=== PATIENT | male | born 1950 | race Caucasian/White ===

== ENCOUNTER 2024-08-20 15:19 | Inpatient (IN) | payer MEDICARE ==
[2024-08-20 16:31] LABS: ALT (SGPT) 23 U/L (8-55); AST (SGOT) 32 U/L (5-34); Albumin 3.5 g/dL (3.4-4.8); Alkaline Phosphatase 75 U/L (40-110); Anion Gap 15 mmol/L (10-20); BUN (Urea Nitrogen) 25 mg/dL (8.4-25.7); Calc. Creatinine Clearance 0 mL/min (70-130); Carbon Dioxide 27 mmol/L (23-31); Chloride 108 mmol/L (98-107); Estimated GFR 42; Globulin 2.2 g/dL (2.4-3.5); Glucose 130 mg/dL (83-110); Protein, Total 5.7 g/dL (5.8-8.1); Sodium 146 mmol/L (136-145)
[2024-08-20 16:37] LABS: Troponin I Less than 0.010 ng/mL (< 0.028)
[2024-08-20 17:27] LABS: Hematocrit 34.2 % (42.0-52.0); Hemoglobin 12.1 g/dL (14.0-18.0); Mean Corpuscular HGB CONC 35.4 g/dL (32.0-36.0); Mean Corpuscular Hemoglobin 33.6 pg (27.0-31.0); Mean Platelet Volume 10.7 fL (7.4-10.4); Platelet Count 115 10x3/uL (130-400); RBC Distribution Width 14.3 % (11.5-14.5)
[2024-08-20 17:38] LABS: Anisocytosis SLIGHT = 6-15 cells HPF (0-5); Band 4 % (5-11); Eosinophils 6 % (0-10); Helmet Cells SLIGHT = 2-5 cells HPF (0-1); Lymphocytes 30 % (21-51); Macrocytosis SLIGHT = 6-15 cells HPF (0-5); Metamyelocyte 1 % (0-0); Monocytes 9 % (0-10); Neutrophil 45 % (42-75); Ovalocytes SLIGHT = 2-5 cells HPF (0-1); Platelet Adequacy Comment Platelets Decreased; Polychromasia SLIGHT = 2-3 cells HPF (0-2); Reactive Lymphocytes 4 % (0-10)
[2024-08-20 18:05] LABS: Bacteria/HPF None Seen HPF (None Seen); Bilirubin Negative (Negative); Blood, Urine Negative (Negative); CAUTI Indications for Culture Acute Hematuria; Clarity Clear (Clear); Glucose, Urine (Dipstick) Normal (Negative); Ketone, Urine Trace mg/dL (Negative); Leukocyte Negative Leu/uL (Negative); Nitrite Negative (Negative); Protein, Urine (Dipstick) Negative (Neg-Trace); RBC/HPF 0-3 HPF (0-3); Specific Gravity, Urine 1.011 (1.002-1.036); Squamous Epithelial None Seen HPF (0-3); Urobilinogen Normal mg/dL (Less than 2); WBC/HPF 0-3 HPF (0-3)
[2024-08-20 18:07] LABS: Urine Culture Reflex No No
[2024-08-20] MEDS ORDERED: Acetaminophen 650 MG Suppository PR PRN (18:12)
[2024-08-20] MEDS ORDERED: Ondansetron PF 4 MG/2 ML Vial IVP PRN (18:12)
[2024-08-20] MEDS ORDERED: Ondansetron ODT 4 MG TAB PO PRN (18:12)
[2024-08-20] MEDS: Sodium Chloride 0.9% 1,000 ML IV SCH (21:00)
[2024-08-20] MEDS ORDERED: Milk Of Magnesia 30 ML UDCUP ONE (21:01)
[2024-08-20] MEDS ORDERED: Lidocaine Viscous Sol 2% 15 ml UD Cup ONE (21:02)
[2024-08-20] MEDS ORDERED: Famotidine 20 MG TAB ONE (21:06)
[2024-08-20] MEDS: Famotidine 20 MG TAB PO SCH (21:21)
[2024-08-20] MEDS: Famotidine/PF 20 mg/2ml Vial SLOW IVP SCH (21:21)
[2024-08-20 21:28] VITALS: BMI 24.8
[2024-08-20 21:31] LABS: Lipase 11 U/L (8-78); Magnesium 2.3 mg/dL (1.6-2.6); Phosphorus 4.4 mg/dL (2.3-4.7)
[2024-08-20] MEDS: Lidocaine 2% Viscous Solution 10 ML, Aluminum & Magnesium Hydroxide 30 ML SSW SCH (21:41)
[2024-08-21 03:48] LABS: Bacteria/HPF None Seen HPF (None Seen); Bilirubin Negative (Negative); Blood, Urine 3+ (Negative); CAUTI Indications for Culture Dysuria,urgency,freq; Clarity Clear (Clear); Glucose, Urine (Dipstick) Normal (Negative); Ketone, Urine Negative (Negative); Leukocyte Negative Leu/uL (Negative); Nitrite Negative (Negative); Protein, Urine (Dipstick) Negative (Neg-Trace); RBC/HPF Greater than 50 HPF (0-3); Squamous Epithelial None Seen HPF (0-3); Urobilinogen Normal mg/dL (Less than 2); WBC/HPF 0-3 HPF (0-3); pH, Urine 6.5 (5.0-9.0)
[2024-08-21 03:51] LABS: Urine Culture Reflex No No
[2024-08-21 05:07] LABS: Anion Gap 14 mmol/L (10-20); BUN (Urea Nitrogen) 23 mg/dL (8.4-25.7); Calc. Creatinine Clearance 40 mL/min (70-130); Calcium 11.8 mg/dL (7.8-10.44); Carbon Dioxide 21 mmol/L (23-31); Chloride 113 mmol/L (98-107); Estimated GFR 43; Glucose 114 mg/dL (83-110); Potassium 3.7 mmol/L (3.5-5.1); Sodium 144 mmol/L (136-145)
[2024-08-21 05:43] LABS: Burr Cells SLIGHT = 2-5 cells HPF (0-1); Elliptocytes SLIGHT = 2-5 cells HPF (0-1); Eosinophils 7 % (0-10); Lymphocytes 36 % (21-51); Macrocytosis SLIGHT = 6-15 cells HPF (0-5); Metamyelocyte 2 % (0-0); Monocytes 2 % (0-10); Myelocyte 3 % (0-0); Neutrophil 50 % (42-75); Platelet Adequacy Comment Platelets Decreased; Polychromasia SLIGHT = 2-3 cells HPF (0-2)
[2024-08-21 05:52] LABS: Hematocrit 29.4 % (42.0-52.0); Hemoglobin 10.2 g/dL (14.0-18.0); Mean Corpuscular HGB CONC 34.7 g/dL (32.0-36.0); Mean Corpuscular Hemoglobin 34.1 pg (27.0-31.0); Mean Corpuscular Volume 98.3 fL (78.0-98.0); Mean Platelet Volume 10.3 fL (7.4-10.4); Platelet Count 97 10x3/uL (130-400); RBC Distribution Width 14.6 % (11.5-14.5); Red Blood Cell (RBC) Count 2.99 mill/uL (4.70-6.10)
[2024-08-21] MEDS: predniSONE 50 MG TAB PO SCH (22:15)
[2024-08-22] MEDS: Pantoprazole DR 40 MG TAB PO SCH (08:39)
[2024-08-22] MEDS: diphenhydrAMINE 50 MG CAP PO SCH (08:39)
[2024-08-22 10:39] LABS: Hematocrit 34.2 % (42.0-52.0); Hemoglobin 11.8 g/dL (14.0-18.0); Mean Corpuscular HGB CONC 34.5 g/dL (32.0-36.0); Mean Corpuscular Hemoglobin 33.9 pg (27.0-31.0); Mean Corpuscular Volume 98.3 fL (78.0-98.0); Mean Platelet Volume 10.2 fL (7.4-10.4); Platelet Count 96 10x3/uL (130-400); RBC Distribution Width 14.6 % (11.5-14.5); Red Blood Cell (RBC) Count 3.48 mill/uL (4.70-6.10)
[2024-08-22 10:59] LABS: ALT (SGPT) 25 U/L (8-55); AST (SGOT) 39 U/L (5-34); Albumin 3.4 g/dL (3.4-4.8); Alkaline Phosphatase 73 U/L (40-110); Anion Gap 14 mmol/L (10-20); BUN (Urea Nitrogen) 29 mg/dL (8.4-25.7); Bilirubin, Total 0.6 mg/dL (0.2-1.2); Calc. Creatinine Clearance 36 mL/min (70-130); Calcium 11.4 mg/dL (7.8-10.44); Carbon Dioxide 24 mmol/L (23-31); Chloride 110 mmol/L (98-107); Estimated GFR 39; Globulin 2.2 g/dL (2.4-3.5); Glucose 234 mg/dL (83-110); Potassium 4.3 mmol/L (3.5-5.1); Protein, Total 5.6 g/dL (5.8-8.1); Sodium 144 mmol/L (136-145)
[2024-08-22 11:08] LABS: Band 6 % (5-11); Eosinophils 1 % (0-10); Lymphocytes 17 % (21-51); Monocytes 4 % (0-10); Neutrophil 70 % (42-75); Platelet Adequacy Comment Platelets Decreased; RBC Morphology Within Normal Limits; Reactive Lymphocytes 1 % (0-10)
[2024-08-22] MEDS ORDERED: Iopamidol 370 76% 100 ML VIAL ONE (15:38)
[2024-08-22 17:17] LABS: Creatinine, Urine 44.89 mg/dL (63-166)
[2024-08-22 17:18] LABS: Microalbumin Urine 1.3 mg/dL (0.5-50.0)
[2024-08-22] MEDS: Acetylcysteine 10% 100 MG/ML (30 ml) SOLN PO SCH (18:55)
[2024-08-22] MEDS: Sodium Chloride 0.9% 1,000 ML IV SCH (18:59)
[2024-08-23 06:51] LABS: Albumin 2.8 g/dL (3.4-4.8); Anion Gap 11 mmol/L (10-20); BUN (Urea Nitrogen) 40 mg/dL (8.4-25.7); BUN/Creatinine Ratio 24.69; Calc. Creatinine Clearance 41 mL/min (70-130); Calcium 9.6 mg/dL (7.8-10.44); Carbon Dioxide 24 mmol/L (23-31); Chloride 114 mmol/L (98-107); Estimated GFR 44; Glucose 164 mg/dL (83-110); Phosphorus 4.6 mg/dL (2.3-4.7); Potassium 3.7 mmol/L (3.5-5.1); Sodium 145 mmol/L (136-145)
[2024-08-23] MEDS: Acetylcysteine 20% 200 MG/ML 30 ML VIAL PO SCH (09:03)
[2024-08-23] MEDS: Albumin 25% 25 GM (100 mL) BOT IVPB SCH ×2 (09:04→15:54)
[2024-08-23] MEDS: Sodium Chloride 0.9% 1,000 ML IV SCH (13:41)
[2024-08-23 14:25] LABS: Reference Lab Name LABCORP
[2024-08-23 17:37] LABS: % Free PSA 41.3 % (.); Total PSA 0.8 ng/mL (0.0-4.0)
[2024-08-24 04:48] LABS: Anion Gap 9 mmol/L (10-20); BUN (Urea Nitrogen) 31 mg/dL (8.4-25.7); Calc. Creatinine Clearance 47 mL/min (70-130); Carbon Dioxide 24 mmol/L (23-31); Chloride 115 mmol/L (98-107); Estimated GFR 53; Glucose 112 mg/dL (83-110); Potassium 3.3 mmol/L (3.5-5.1); Sodium 145 mmol/L (136-145)
[2024-08-24 08:01] LABS: Albumin 2.8 g/dL (3.4-4.8)
[2024-08-24] MEDS: Potassium Bicarbonate/Cit Ac 20 MEQ TAB PO SCH (10:11)
[2024-08-24] MEDS: Sodium Bicarbonate 75 MEQ in Sodium Chloride 0.45% 1,000 ML IV SCH (10:12)
[2024-08-24] MEDS: Albumin 25% 25 GM (100 mL) BOT IVPB SCH (10:12)
[2024-08-24] MEDS: Senokot S 8.6-50 MG TAB PO PRN (17:07)
[2024-08-25 08:27] LABS: Hematocrit 27.8 % (42.0-52.0); Hemoglobin 9.6 g/dL (14.0-18.0); Mean Corpuscular HGB CONC 34.5 g/dL (32.0-36.0); Mean Corpuscular Hemoglobin 33.7 pg (27.0-31.0); Mean Corpuscular Volume 97.5 fL (78.0-98.0); Mean Platelet Volume 10.2 fL (7.4-10.4); Platelet Count 82 10x3/uL (130-400); RBC Distribution Width 14.7 % (11.5-14.5); Red Blood Cell (RBC) Count 2.85 mill/uL (4.70-6.10)
[2024-08-25 08:54] LABS: Albumin 3.6 g/dL (3.4-4.8); Anion Gap 9 mmol/L (10-20); BUN (Urea Nitrogen) 23 mg/dL (8.4-25.7); BUN/Creatinine Ratio 16.31; Calc. Creatinine Clearance 47 mL/min (70-130); Carbon Dioxide 27 mmol/L (23-31); Chloride 110 mmol/L (98-107); Estimated GFR 52; Glucose 128 mg/dL (83-110); Phosphorus 2.8 mg/dL (2.3-4.7); Potassium 3.6 mmol/L (3.5-5.1); Sodium 142 mmol/L (136-145)
[2024-08-25 09:38] LABS: Band 2 % (5-11); Eosinophils 5 % (0-10); Lymphocytes 44 % (21-51); Monocytes 4 % (0-10); Neutrophil 46 % (42-75); Platelet Adequacy Comment Significant Decrease; RBC Morphology Within Normal Limits
[2024-08-25] MEDS ORDERED: Magnevist 469MG/ML 20 ML VIAL ONE (10:01)
[2024-08-25 14:09] LABS: Iron 90 ug/dL (65-175); Iron Binding Capacity, Total 154 mcg/dL (261-462)
[2024-08-25 17:12] LABS: Albumin, PEP 24hr Ur 27.1 % (NOT ESTAB.); Alpha-1-Globulin, PEP 24h Ur 5.6 % (NOT ESTAB.); Alpha-2-Globulin, PEP 24h Ur 15.9 % (NOT ESTAB.); Beta Globulin, PEP 24h Ur 35.5 % (NOT ESTAB.); Gamma Globulin, PEP 24h Ur 15.9 % (NOT ESTAB.); M-Spike,% PEP 24hr Ur Not Observed % (Not Observed); Protein, PEP 24hr calculated 41 mg/24 hr (30-150); Protein, Urine 4.5 mg/dL (Not Estab.)
[2024-08-25] MEDS: EPOETIN ALFA-EPBX (ESRD) 10,000 UNITS/ML VIAL SC SCH (17:35)
[2024-08-25] MEDS: Acetaminophen 325 MG TAB PO PRN (21:36)
[2024-08-26 09:20] LABS: Albumin 3.6 g/dL (3.4-4.8); Anion Gap 11 mmol/L (10-20); BUN (Urea Nitrogen) 20 mg/dL (8.4-25.7); Calc. Creatinine Clearance 43 mL/min (70-130); Calcium 10.4 mg/dL (7.8-10.44); Carbon Dioxide 26 mmol/L (23-31); Chloride 109 mmol/L (98-107); Estimated GFR 47; Glucose 174 mg/dL (83-110); Phosphorus 3.5 mg/dL (2.3-4.7); Potassium 3.6 mmol/L (3.5-5.1); Sodium 142 mmol/L (136-145)
[2024-08-26 15:27] VITALS: BP 127/59; TEMP 97.3
== END 2024-08-26 17:26 | disposition home or self-care (01) | DRG 641 ==
LOC: ERS 15:19 → ERHOLD 18:09 → 2NO 08-21 17:27 → OBSVTOIN 08-22 09:02
PROVIDERS: ADMIT Internal Medicine; ATTEND Hospitalist
DX: E83.52 Hypercalcemia (principal); D62 Acute posthemorrhagic anemia; N17.9 Acute kidney failure, unspecified; E87.29 Other acidosis; K76.89 Other specified diseases of liver; T50.2X5A Adverse effect of carbonic-anhydrase inhibitors, benzothiadiazides and other diuretics, initial encounter; E86.0 Dehydration; R31.9 Hematuria, unspecified; D69.6 Thrombocytopenia, unspecified; N18.2 Chronic kidney disease, stage 2 (mild); I12.9 Hypertensive chronic kidney disease with stage 1 through stage 4 chronic kidney disease, or unspecified chronic kidney disease; R73.03 Prediabetes; R60.0 Localized edema; R22.1 Localized swelling, mass and lump, neck; R62.7 Adult failure to thrive; Z68.24 Body mass index [BMI] 24.0-24.9, adult; Z91.041 Radiographic dye allergy status; Z86.73 Personal history of transient ischemic attack (TIA), and cerebral infarction without residual deficits; E87.6 Hypokalemia
CPT/HCPCS: 36415; 70490; 70543; 71045; 72193; 74183; 80048; 80053; 80069; 81001; 82040; 82043; 82164; 82306; 82550; 82728; 83540; 83550; 83690; 83735; 83880; 83970; 84100; 84153; 84154; 84156; 84166; 84300; 84443; 84484; 84540; 85025; 86850; 86900; 86901; 93005; 93306; 96360; G0378; J0132; J7030; J7512; J7608; P9047; Q5105; Q9967

== ENCOUNTER 2024-08-31 19:33 | Inpatient (IN) | payer MEDICARE ==
[~2024-08-31 19:33] MED LIST: Iopamidol 370 76% 100 ML VIAL ONE
[2024-08-31 21:24] LABS: Acetaminophen Less than 10 mcg/mL (Less than 10); Alcohol Less than 10.0 mg/dL (Less than 10); CK (CPK) 14 U/L (30-200); Lipase 11 U/L (8-78); Salicylate Less than 8.0 mg/dL (Less than 8.0)
[2024-08-31 21:26] LABS: Hematocrit 29.4 % (42.0-52.0); Hemoglobin 9.9 g/dL (14.0-18.0); Mean Corpuscular HGB CONC 33.7 g/dL (32.0-36.0); Mean Corpuscular Hemoglobin 33.6 pg (27.0-31.0); Mean Corpuscular Volume 99.7 fL (78.0-98.0); Mean Platelet Volume 9.7 fL (7.4-10.4); Platelet Count 114 10x3/uL (130-400); RBC Distribution Width 15.8 % (11.5-14.5); Red Blood Cell (RBC) Count 2.95 mill/uL (4.70-6.10)
[2024-08-31 21:28] LABS: Troponin I Less than 0.010 ng/mL (< 0.028)
[2024-08-31 21:30] LABS: ALT (SGPT) 24 U/L (8-55); AST (SGOT) 31 U/L (5-34); Albumin 3.6 g/dL (3.4-4.8); Alkaline Phosphatase 79 U/L (40-110); Anion Gap 11 mmol/L (10-20); BUN (Urea Nitrogen) 20 mg/dL (8.4-25.7); Bilirubin, Total 1.3 mg/dL (0.2-1.2); Calc. Creatinine Clearance 0 mL/min (70-130); Calcium 14.1 mg/dL (7.8-10.44); Carbon Dioxide 27 mmol/L (23-31); Chloride 111 mmol/L (98-107); Estimated GFR 34; Globulin 1.8 g/dL (2.4-3.5); Glucose 116 mg/dL (83-110); Potassium 3.3 mmol/L (3.5-5.1); Protein, Total 5.4 g/dL (5.8-8.1); Sodium 146 mmol/L (136-145)
[2024-08-31 21:43] LABS: Anisocytosis SLIGHT = 6-15 cells HPF (0-5); Band 6 % (5-11); Burr Cells SLIGHT = 2-5 cells HPF (0-1); Eosinophils 4 % (0-10); Lymphocytes 27 % (21-51); Macrocytosis SLIGHT = 6-15 cells HPF (0-5); Monocytes 4 % (0-10); Neutrophil 59 % (42-75); Nucleated RBC (Manual Ct) 1 % (0); Platelet Adequacy Comment Platelets Decreased; Polychromasia SLIGHT = 2-3 cells HPF (0-2); Toxic Granulation SLIGHT
[2024-08-31] MEDS ORDERED: HYDROcodone/Acetaminophen 10/325 mg Tablet ONE (22:01)
[2024-08-31] MEDS ORDERED: methylPREDNISolone Sod Succ 40 MG VIAL ONE (22:17)
[2024-08-31] MEDS ORDERED: diphenhydrAMINE 50 MG/ML VIAL ONE (22:17)
[2024-08-31] MEDS ORDERED: Famotidine/PF 20 mg/2ml Vial ONE (22:18)
[2024-09-01] MEDS ORDERED: Furosemide 40 MG (4 mL) VIAL ONE (00:39)
[2024-09-01] MEDS ORDERED: Acetaminophen 650 MG Suppository PR PRN (01:08)
[2024-09-01] MEDS: Calcitonin,Salmon,Synthetic 400 UNITS/2 ML SC SCH (01:46)
[2024-09-01] MEDS: Potassium Chloride 20 MEQ TAB PO SCH (01:46)
[2024-09-01 02:16] VITALS: BMI 24.4
[2024-09-01] MEDS: Ondansetron PF 4 MG/2 ML Vial IVP PRN ×2 (02:30→17:11)
[2024-09-01 04:49] LABS: Hematocrit 33.7 % (42.0-52.0); Hemoglobin 11.3 g/dL (14.0-18.0); Mean Corpuscular HGB CONC 33.5 g/dL (32.0-36.0); Mean Corpuscular Hemoglobin 33.7 pg (27.0-31.0); Mean Corpuscular Volume 100.6 fL (78.0-98.0); Mean Platelet Volume 9.8 fL (7.4-10.4); Platelet Count 111 10x3/uL (130-400); RBC Distribution Width 15.9 % (11.5-14.5); Red Blood Cell (RBC) Count 3.35 mill/uL (4.70-6.10)
[2024-09-01 04:54] LABS: Anion Gap 13 mmol/L (10-20); BUN (Urea Nitrogen) 22 mg/dL (8.4-25.7); Calc. Creatinine Clearance 30 mL/min (70-130); Calcium 13.7 mg/dL (7.8-10.44); Carbon Dioxide 26 mmol/L (23-31); Chloride 108 mmol/L (98-107); Estimated GFR 32; Glucose 204 mg/dL (83-110); Magnesium 2.3 mg/dL (1.6-2.6); Potassium 3.8 mmol/L (3.5-5.1); Sodium 143 mmol/L (136-145)
[2024-09-01 05:04] LABS: Bacteria/HPF None Seen HPF (None Seen); Bilirubin Negative (Negative); Blood, Urine 1+ (Negative); Clarity Clear (Clear); Glucose, Urine (Dipstick) Normal (Negative); Ketone, Urine Negative (Negative); Leukocyte Negative Leu/uL (Negative); Nitrite Negative (Negative); Protein, Urine (Dipstick) Negative (Neg-Trace); RBC/HPF 0-3 HPF (0-3); Specific Gravity, Urine 1.003 (1.002-1.036); Squamous Epithelial None Seen HPF (0-3); Urobilinogen Normal mg/dL (Less than 2); WBC/HPF 0-3 HPF (0-3)
[2024-09-01 05:23] LABS: Band 4 % (5-11); Burr Cells SLIGHT = 2-5 cells HPF (0-1); Eosinophils 5 % (0-10); Lymphocytes 9 % (21-51); Macrocytosis SLIGHT = 6-15 cells HPF (0-5); Metamyelocyte 1 % (0-0); Monocytes 4 % (0-10); Neutrophil 77 % (42-75); Platelet Adequacy Comment Platelets Decreased; Polychromasia SLIGHT = 2-3 cells HPF (0-2)
[2024-09-01] MEDS ORDERED: Calcitonin,Salmon,Synthetic 400 UNITS/2 ML SC SCH (07:00)
[2024-09-01] MEDS: CALCITONIN SALMON SYNTHETIC SC SCH ×2 (09:07→23:13)
[2024-09-01] MEDS: Sodium Bicarbonate 50 MEQ in Sodium Chloride 0.45% 1,000 ML IV SCH (09:07)
[2024-09-01] MEDS: Cyclobenzaprine 10 MG TAB PO SCH (11:29)
[2024-09-01 13:39] LABS: Albumin 3.6 g/dL (3.4-4.8); Anion Gap 15 mmol/L (10-20); BUN (Urea Nitrogen) 29 mg/dL (8.4-25.7); BUN/Creatinine Ratio 12.95; Calc. Creatinine Clearance 28 mL/min (70-130); Calcium 12.3 mg/dL (7.8-10.44); Carbon Dioxide 29 mmol/L (23-31); Chloride 106 mmol/L (98-107); Estimated GFR 30; Glucose 193 mg/dL (83-110); Phosphorus 5.5 mg/dL (2.3-4.7); Potassium 3.7 mmol/L (3.5-5.1); Sodium 146 mmol/L (136-145)
[2024-09-01] MEDS: Promethazine HCl 25 MG in Sodium Chloride 0.9% 50 ML IVPB PRN (22:57)
[2024-09-02 07:28] LABS: Albumin 3.4 g/dL (3.4-4.8); Anion Gap 14 mmol/L (10-20); BUN (Urea Nitrogen) 44 mg/dL (8.4-25.7); BUN/Creatinine Ratio 18.11; Calc. Creatinine Clearance 26 mL/min (70-130); Calcium 11.1 mg/dL (7.8-10.44); Carbon Dioxide 29 mmol/L (23-31); Chloride 104 mmol/L (98-107); Estimated GFR 27; Glucose 168 mg/dL (83-110); Phosphorus 5.4 mg/dL (2.3-4.7); Potassium 3.6 mmol/L (3.5-5.1); Sodium 143 mmol/L (136-145)
[2024-09-02] MEDS: Sodium Chloride 0.9% 1,000 ML IV SCH (10:18)
[2024-09-03] MEDS: Acetaminophen 325 MG TAB PO PRN (07:26)
[2024-09-03 08:45] LABS: Hematocrit 26.7 % (42.0-52.0); Mean Corpuscular HGB CONC 33.7 g/dL (32.0-36.0); Mean Corpuscular Hemoglobin 34.1 pg (27.0-31.0); Mean Corpuscular Volume 101.1 fL (78.0-98.0); Platelet Count 89 10x3/uL (130-400); RBC Distribution Width 15.9 % (11.5-14.5); Red Blood Cell (RBC) Count 2.64 mill/uL (4.70-6.10)
[2024-09-03 08:56] LABS: ALT (SGPT) 30 U/L (8-55); AST (SGOT) 33 U/L (5-34); Albumin 3.2 g/dL (3.4-4.8); Alkaline Phosphatase 61 U/L (40-110); Bilirubin, Direct 0.5 mg/dL (0.1-0.3); Protein, Total 4.7 g/dL (5.8-8.1)
[2024-09-03 08:59] LABS: Albumin 3.1 g/dL (3.4-4.8); Anion Gap 11 mmol/L (10-20); BUN (Urea Nitrogen) 47 mg/dL (8.4-25.7); BUN/Creatinine Ratio 19.34; Calc. Creatinine Clearance 26 mL/min (70-130); Calcium 10.2 mg/dL (7.8-10.44); Carbon Dioxide 27 mmol/L (23-31); Chloride 108 mmol/L (98-107); Estimated GFR 27; Glucose 145 mg/dL (83-110); Phosphorus 4.7 mg/dL (2.3-4.7); Potassium 3.2 mmol/L (3.5-5.1); Sodium 143 mmol/L (136-145)
[2024-09-03 09:07] LABS: Anisocytosis SLIGHT = 6-15 cells HPF (0-5); Band 1 % (5-11); Burr Cells SLIGHT = 2-5 cells HPF (0-1); Eosinophils 2 % (0-10); Hypochromia SLIGHT = 6-15 cells HPF (0-5); Lymphocytes 18 % (21-51); Macrocytosis SLIGHT = 6-15 cells HPF (0-5); Metamyelocyte 1 % (0-0); Monocytes 4 % (0-10); Neutrophil 75 % (42-75); Platelet Adequacy Comment Platelets Decreased; Polychromasia SLIGHT = 2-3 cells HPF (0-2); Smudge Cells 3.9 %
[2024-09-03] MEDS: Potassium Chloride 20 MEQ TAB PO SCH (09:45)
[2024-09-03] MEDS: Albumin 25% 25 GM (100 mL) BOT IVPB SCH (11:47)
[2024-09-03] MEDS: Ondansetron ODT 4 MG TAB PO PRN (19:58)
[2024-09-04] MEDS: Acetaminophen 500 MG TAB PO PRN (01:24)
[2024-09-04 05:39] LABS: #Basophils Less than 0.03 10x3/uL (0.0-0.2); %Basophils 0.5 % (0.0-1.0); %Eosinophils 3.3 % (0.0-10.0); %Lymphocytes 25.4 % (21.0-51.0); %Monocytes 7.8 % (0.0-10.0); %Neutrophils 56.3 % (42.0-75.0); Anion Gap 11 mmol/L (10-20); BUN (Urea Nitrogen) 39 mg/dL (8.4-25.7); Calc. Creatinine Clearance 29 mL/min (70-130); Calcium 10.4 mg/dL (7.8-10.44); Carbon Dioxide 25 mmol/L (23-31); Chloride 111 mmol/L (98-107); Estimated GFR 32; Glucose 90 mg/dL (83-110); Hemoglobin 7.3 g/dL (14.0-18.0); Mean Corpuscular HGB CONC 33.2 g/dL (32.0-36.0); Mean Corpuscular Hemoglobin 33.6 pg (27.0-31.0); Mean Corpuscular Volume 101.4 fL (78.0-98.0); Mean Platelet Volume 10.2 fL (7.4-10.4); Platelet Count 70 10x3/uL (130-400); Potassium 3.3 mmol/L (3.5-5.1); RBC Distribution Width 15.9 % (11.5-14.5); Red Blood Cell (RBC) Count 2.17 mill/uL (4.70-6.10); Sodium 144 mmol/L (136-145)
[2024-09-04] MEDS: Potassium Chloride 20 MEQ TAB PO SCH (10:06)
[2024-09-04] MEDS: EPOETIN ALFA-EPBX (ESRD) 10,000 UNITS/ML VIAL SC SCH (14:39)
[2024-09-04] MEDS: Senokot S 8.6-50 MG TAB PO SCH ×2 (14:39→20:35)
[2024-09-04 15:02] LABS: Magnesium 1.9 mg/dL (1.6-2.6); Phosphorus 3.5 mg/dL (2.3-4.7)
[2024-09-05 04:53] LABS: Hematocrit 23.1 % (42.0-52.0); Hemoglobin 7.8 g/dL (14.0-18.0); Mean Corpuscular HGB CONC 33.8 g/dL (32.0-36.0); Mean Corpuscular Hemoglobin 34.1 pg (27.0-31.0); Mean Corpuscular Volume 100.9 fL (78.0-98.0); Mean Platelet Volume 9.7 fL (7.4-10.4); Platelet Count 73 10x3/uL (130-400); RBC Distribution Width 15.9 % (11.5-14.5); Red Blood Cell (RBC) Count 2.29 mill/uL (4.70-6.10)
[2024-09-05 04:55] LABS: ALT (SGPT) 64 U/L (8-55); AST (SGOT) 45 U/L (5-34); Albumin 3.3 g/dL (3.4-4.8); Alkaline Phosphatase 57 U/L (40-110); Anion Gap 10 mmol/L (10-20); BUN (Urea Nitrogen) 32 mg/dL (8.4-25.7); Bilirubin, Total 0.9 mg/dL (0.2-1.2); Calc. Creatinine Clearance 34 mL/min (70-130); Carbon Dioxide 23 mmol/L (23-31); Chloride 113 mmol/L (98-107); Estimated GFR 38; Globulin 1.1 g/dL (2.4-3.5); Glucose 105 mg/dL (83-110); Potassium 3.5 mmol/L (3.5-5.1); Protein, Total 4.4 g/dL (5.8-8.1); Sodium 142 mmol/L (136-145)
[2024-09-05 05:39] LABS: Anisocytosis SLIGHT = 6-15 cells HPF (0-5); Band 4 % (5-11); Eosinophils 5 % (0-10); Lymphocytes 33 % (21-51); Macrocytosis SLIGHT = 6-15 cells HPF (0-5); Metamyelocyte 1 % (0-0); Monocytes 6 % (0-10); Neutrophil 48 % (42-75); Nucleated RBC (Manual Ct) 1 % (0); Ovalocytes SLIGHT = 2-5 cells HPF (0-1); Platelet Adequacy Comment Platelets Decreased; Polychromasia SLIGHT = 2-3 cells HPF (0-2); Reactive Lymphocytes 1 % (0-10); Toxic Granulation SLIGHT
[2024-09-05] MEDS: Albumin 25% 25 GM (100 mL) BOT IVPB SCH (06:34)
[2024-09-05] MEDS: Sodium Bicarbonate 50 MEQ in Sodium Chloride 0.45% 1,000 ML IV SCH (08:30)
[2024-09-05] MEDS: Zoledronic Acid 4 MG in Sodium Chloride 0.9% 100 ML IVPB SCH (11:12)
[2024-09-05 13:34] LABS: Immunoglob - A (Total IgA) 54 mg/dL (101-645); Immunoglob - G (Total IgG) 340 mg/dL (540-1822)
[2024-09-05 13:47] LABS: Immunoglob - M (Total IgM) 8 mg/dL (22-240)
[2024-09-06 05:03] LABS: ALT (SGPT) 45 U/L (8-55); AST (SGOT) 35 U/L (5-34); Albumin 4.2 g/dL (3.4-4.8); Alkaline Phosphatase 60 U/L (40-110); Anion Gap 9 mmol/L (10-20); BUN (Urea Nitrogen) 23 mg/dL (8.4-25.7); Calc. Creatinine Clearance 36 mL/min (70-130); Calcium 11.6 mg/dL (7.8-10.44); Carbon Dioxide 25 mmol/L (23-31); Chloride 110 mmol/L (98-107); Estimated GFR 41; Glucose 113 mg/dL (83-110); Potassium 3.3 mmol/L (3.5-5.1); Protein, Total 5.2 g/dL (5.8-8.1); Sodium 141 mmol/L (136-145)
[2024-09-06 05:19] LABS: Hematocrit 22.5 % (42.0-52.0); Hemoglobin 7.7 g/dL (14.0-18.0); Mean Corpuscular HGB CONC 34.2 g/dL (32.0-36.0); Mean Corpuscular Hemoglobin 34.2 pg (27.0-31.0); Platelet Count 75 10x3/uL (130-400); RBC Distribution Width 16.2 % (11.5-14.5); Red Blood Cell (RBC) Count 2.25 mill/uL (4.70-6.10)
[2024-09-06] MEDS: Potassium Chloride 20 MEQ TAB PO SCH (06:45)
[2024-09-06] MEDS: tiZANidine HCl 4 MG TAB PO SCH (06:48)
[2024-09-06 07:34] LABS: Band 5 % (5-11); Burr Cells SLIGHT = 2-5 cells HPF (0-1); Eosinophils 2 % (0-10); Lymphocytes 14 % (21-51); Monocytes 2 % (0-10); Neutrophil 77 % (42-75); Platelet Adequacy Comment Significant Decrease
[2024-09-06 08:29] LABS: Magnesium 1.5 mg/dL (1.6-2.6); Phosphorus 2.5 mg/dL (2.3-4.7)
[2024-09-06] MEDS: Magnesium Sulfate In Water 4 GM in Premix 1 BAG IVPB SCH (09:48)
[2024-09-06 10:30] LABS: CEA, Serum 6.08 ng/mL (< or = 5.0)
[2024-09-06] MEDS ORDERED: Sodium Bicarbonate 2.5 MEQ/5 ML SDV ONE (14:05)
[2024-09-06] MEDS ORDERED: Lidocaine 1% PF 5 ML VIAL ONE (14:05)
[2024-09-06] MEDS: traMADol HCl 50 MG TAB PO PRN (18:09)
[2024-09-07 04:50] LABS: Hematocrit 24.5 % (42.0-52.0); Hemoglobin 8.2 g/dL (14.0-18.0); Mean Corpuscular HGB CONC 33.5 g/dL (32.0-36.0); Mean Corpuscular Hemoglobin 33.6 pg (27.0-31.0); Mean Corpuscular Volume 100.4 fL (78.0-98.0); Mean Platelet Volume 10.4 fL (7.4-10.4); Platelet Count 87 10x3/uL (130-400); RBC Distribution Width 16.5 % (11.5-14.5); Red Blood Cell (RBC) Count 2.44 mill/uL (4.70-6.10)
[2024-09-07 04:58] LABS: ALT (SGPT) 48 U/L (8-55); AST (SGOT) 40 U/L (5-34); Albumin 3.9 g/dL (3.4-4.8); Alkaline Phosphatase 69 U/L (40-110); Anion Gap 13 mmol/L (10-20); BUN (Urea Nitrogen) 23 mg/dL (8.4-25.7); Calc. Creatinine Clearance 35 mL/min (70-130); Calcium 9.9 mg/dL (7.8-10.44); Carbon Dioxide 25 mmol/L (23-31); Chloride 105 mmol/L (98-107); Estimated GFR 39; Globulin 1.3 g/dL (2.4-3.5); Glucose 113 mg/dL (83-110); Potassium 2.9 mmol/L (3.5-5.1); Protein, Total 5.2 g/dL (5.8-8.1); Sodium 140 mmol/L (136-145)
[2024-09-07 05:20] LABS: Anisocytosis SLIGHT = 6-15 cells HPF (0-5); Band 5 % (5-11); Blast 3 % (0-0); Eosinophils 6 % (0-10); Hypochromia SLIGHT = 6-15 cells HPF (0-5); Lymphocytes 22 % (21-51); Macrocytosis SLIGHT = 6-15 cells HPF (0-5); Metamyelocyte 1 % (0-0); Monocytes 7 % (0-10); Neutrophil 55 % (42-75); Ovalocytes SLIGHT = 2-5 cells HPF (0-1); Platelet Adequacy Comment Platelets Decreased; Polychromasia SLIGHT = 2-3 cells HPF (0-2)
[2024-09-07 07:49] LABS: Magnesium 1.5 mg/dL (1.6-2.6); Phosphorus 2.5 mg/dL (2.3-4.7)
[2024-09-07] MEDS: Potassium Chloride 20 MEQ TAB PO SCH ×2 (09:37→09:50)
[2024-09-07] MEDS: Magnesium 2 GM/50 ML(in water) 2 GM in Premix 1 BAG IVPB SCH (09:38)
[2024-09-07] MEDS: Polyethylene Glycol 3350 17 GM Packet PO SCH (09:38)
[2024-09-07 16:36] LABS: Albumin, PEP 24hr Ur 47.2 % (NOT ESTAB.); Alpha-1-Globulin, PEP 24h Ur 7.7 % (NOT ESTAB.); Alpha-2-Globulin, PEP 24h Ur 18.2 % (NOT ESTAB.); Beta Globulin, PEP 24h Ur 16.7 % (NOT ESTAB.); Gamma Globulin, PEP 24h Ur 10.3 % (NOT ESTAB.); M-Spike,% PEP 24hr Ur Not Observed % (Not Observed); Protein, PEP 24hr calculated 371 mg/24 hr (30-150)
[2024-09-08 08:53] LABS: Albumin 3.7 g/dL (3.4-4.8); Anion Gap 12 mmol/L (10-20); BUN (Urea Nitrogen) 21 mg/dL (8.4-25.7); BUN/Creatinine Ratio 12.57; Calc. Creatinine Clearance 37 mL/min (70-130); Carbon Dioxide 24 mmol/L (23-31); Chloride 105 mmol/L (98-107); Estimated GFR 43; Glucose 212 mg/dL (83-110); Magnesium 2.1 mg/dL (1.6-2.6); Phosphorus 0.9 mg/dL (2.3-4.7); Potassium 4.3 mmol/L (3.5-5.1); Sodium 137 mmol/L (136-145)
[2024-09-08] MEDS ORDERED: Potassium Phosphate 30 MMOL in Sodium Chloride 0.9% 250 ML 250 ML IVPB SCH (09:15)
[2024-09-08 09:35] LABS: Band 4 % (5-11); Eosinophils 4 % (0-10); Large Platelets 3.8 % (0-5); Lymphocytes 23 % (21-51); Monocytes 12 % (0-10); Neutrophil 54 % (42-75); Platelet Adequacy Comment Platelets Decreased; RBC Morphology Within Normal Limits; Reactive Lymphocytes 4 % (0-10)
[2024-09-08 09:36] LABS: Hematocrit 24.4 % (42.0-52.0); Hemoglobin 8.2 g/dL (14.0-18.0); Mean Corpuscular HGB CONC 33.6 g/dL (32.0-36.0); Mean Corpuscular Hemoglobin 33.9 pg (27.0-31.0); Mean Corpuscular Volume 100.8 fL (78.0-98.0); Platelet Count 96 10x3/uL (130-400); RBC Distribution Width 16.8 % (11.5-14.5); Red Blood Cell (RBC) Count 2.42 mill/uL (4.70-6.10)
[2024-09-08] MEDS: Polyethylene Glycol 3350 17 GM Packet PO SCH ×3 (10:06→21:37)
[2024-09-08] MEDS: Cyanocobalamin (Vitamin B-12) 1,000 MCG TAB PO SCH (10:06)
[2024-09-08] MEDS: Sodium Phosphate 30 MMOL in Sodium Chloride 0.9% 250 ML 250 ML IVPB SCH (10:31)
[2024-09-08] MEDS: Bisacodyl 10 MG SUPP PR PRN (14:43)
[2024-09-08] MEDS: PHOS-NAK 1 PKT PACK PO SCH ×2 (17:11→21:34)
[2024-09-09 04:43] LABS: Hematocrit 21.1 % (42.0-52.0); Hemoglobin 7.1 g/dL (14.0-18.0); Mean Corpuscular HGB CONC 33.6 g/dL (32.0-36.0); Mean Corpuscular Hemoglobin 33.6 pg (27.0-31.0); Mean Platelet Volume 10.4 fL (7.4-10.4); Platelet Count 89 10x3/uL (130-400); RBC Distribution Width 16.8 % (11.5-14.5); Red Blood Cell (RBC) Count 2.11 mill/uL (4.70-6.10)
[2024-09-09 05:13] LABS: Albumin 3.3 g/dL (3.4-4.8); Anion Gap 14 mmol/L (10-20); BUN (Urea Nitrogen) 19 mg/dL (8.4-25.7); BUN/Creatinine Ratio 13.19; Band 8 % (5-11); Calc. Creatinine Clearance 43 mL/min (70-130); Carbon Dioxide 25 mmol/L (23-31); Chloride 104 mmol/L (98-107); Eosinophils 6 % (0-10); Estimated GFR 51; Glucose 133 mg/dL (83-110); Lymphocytes 15 % (21-51); Monocytes 12 % (0-10); Myelocyte 1 % (0-0); Neutrophil 59 % (42-75); Phosphorus 1.8 mg/dL (2.3-4.7); Platelet Adequacy Comment Platelets Decreased; Potassium 3.5 mmol/L (3.5-5.1); RBC Morphology Within Normal Limits; Smudge Cells 16.3 %; Sodium 139 mmol/L (136-145)
[2024-09-09 08:07] LABS: Magnesium 1.9 mg/dL (1.6-2.6)
[2024-09-09] MEDS: Potassium Phosphate 30 MMOL in Sodium Chloride 0.9% 250 ML 250 ML IVPB SCH (08:45)
[2024-09-09 09:55] LABS: Iron 94 ug/dL (65-175); Iron Binding Capacity, Total 126 mcg/dL (261-462)
[2024-09-09 11:17] LABS: Ferritin 2108.07 ng/mL (22-322)
[2024-09-09] MEDS: Lactated Ringer's 1,000 ML IV SCH (18:51)
[2024-09-10 04:56] LABS: Hematocrit 24.4 % (42.0-52.0); Hemoglobin 8.5 g/dL (14.0-18.0); Mean Corpuscular HGB CONC 34.8 g/dL (32.0-36.0); Mean Corpuscular Hemoglobin 33.9 pg (27.0-31.0); Mean Corpuscular Volume 97.2 fL (78.0-98.0); Mean Platelet Volume 10.2 fL (7.4-10.4); Platelet Count 95 10x3/uL (130-400); RBC Distribution Width 17.8 % (11.5-14.5); Red Blood Cell (RBC) Count 2.51 mill/uL (4.70-6.10)
[2024-09-10 05:02] LABS: Anion Gap 12 mmol/L (10-20); BUN (Urea Nitrogen) 18 mg/dL (8.4-25.7); Calc. Creatinine Clearance 40 mL/min (70-130); Calcium 7.7 mg/dL (7.8-10.44); Carbon Dioxide 24 mmol/L (23-31); Chloride 106 mmol/L (98-107); Estimated GFR 46; Glucose 119 mg/dL (83-110); Magnesium 1.8 mg/dL (1.6-2.6); Phosphorus 3.1 mg/dL (2.3-4.7); Potassium 3.8 mmol/L (3.5-5.1); Sodium 138 mmol/L (136-145)
[2024-09-10 05:35] LABS: Anisocytosis SLIGHT = 6-15 cells HPF (0-5); Band 6 % (5-11); Burr Cells SLIGHT = 2-5 cells HPF (0-1); Eosinophils 7 % (0-10); Lymphocytes 27 % (21-51); Metamyelocyte 2 % (0-0); Monocytes 5 % (0-10); Neutrophil 47 % (42-75); Platelet Adequacy Comment Platelets Decreased; Polychromasia SLIGHT = 2-3 cells HPF (0-2); Reactive Lymphocytes 5 % (0-10)
[2024-09-10] MEDS: Ergocalciferol 1.25 MG(50,000 UNITS) CAP PO SCH (09:57)
[2024-09-10] MEDS: Magnesium Oxide 400 MG TAB PO SCH (10:00)
[2024-09-10] MEDS: Clindamycin/D5W 600 MG in Premix 1 BAG IVPB SCH (14:12)
[2024-09-11] MEDS: Loperamide HCl 2 MG CAP PO SCH (03:44)
[2024-09-11 05:05] LABS: Hematocrit 23.7 % (42.0-52.0); Mean Corpuscular HGB CONC 33.8 g/dL (32.0-36.0); Mean Corpuscular Hemoglobin 33.3 pg (27.0-31.0); Mean Corpuscular Volume 98.8 fL (78.0-98.0); Mean Platelet Volume 10.1 fL (7.4-10.4); Platelet Count 98 10x3/uL (130-400); RBC Distribution Width 17.5 % (11.5-14.5)
[2024-09-11 05:19] LABS: Anion Gap 12 mmol/L (10-20); BUN (Urea Nitrogen) 16 mg/dL (8.4-25.7); Calc. Creatinine Clearance 43 mL/min (70-130); Carbon Dioxide 24 mmol/L (23-31); Chloride 105 mmol/L (98-107); Potassium 3.6 mmol/L (3.5-5.1); Sodium 137 mmol/L (136-145)
[2024-09-11 05:20] LABS: Albumin 3.2 g/dL (3.4-4.8); BUN/Creatinine Ratio 11.03; Calcium 7.3 mg/dL (7.8-10.44); Estimated GFR 51; Glucose 124 mg/dL (83-110)
[2024-09-11 05:42] LABS: Anisocytosis SLIGHT = 6-15 cells HPF (0-5); Band 4 % (5-11); Eosinophils 7 % (0-10); Lymphocytes 16 % (21-51); Macrocytosis SLIGHT = 6-15 cells HPF (0-5); Metamyelocyte 1 % (0-0); Monocytes 7 % (0-10); Myelocyte 1 % (0-0); Neutrophil 62 % (42-75); Platelet Adequacy Comment Platelets Decreased; Polychromasia SLIGHT = 2-3 cells HPF (0-2); Reactive Lymphocytes 1 % (0-10); Smudge Cells 8.6 %
[2024-09-11] MEDS: Saccharomyces boulardii 250 MG CAP PO SCH (08:44)
[2024-09-11] MEDS: Loperamide HCl 2 MG CAP PO PRN (08:44)
[2024-09-11 08:56] LABS: 24 Hr Creatinine 965.25 mg/24 hr (950-2490); Creatinine, Urine 49.5 mg/dL (63-166)
[2024-09-12 05:23] LABS: Albumin 3.2 g/dL (3.4-4.8); Anion Gap 16 mmol/L (10-20); BUN (Urea Nitrogen) 16 mg/dL (8.4-25.7); BUN/Creatinine Ratio 10.39; Calc. Creatinine Clearance 40 mL/min (70-130); Calcium 7.4 mg/dL (7.8-10.44); Carbon Dioxide 19 mmol/L (23-31); Chloride 108 mmol/L (98-107); Estimated GFR 47; Glucose 139 mg/dL (83-110); Phosphorus 3.2 mg/dL (2.3-4.7); Potassium 3.7 mmol/L (3.5-5.1); Sodium 139 mmol/L (136-145)
[2024-09-12 05:38] LABS: #Basophils 0.12 10x3/uL (0.0-0.2); %Basophils 0.9 % (0.0-1.0); %Eosinophils 4.3 % (0.0-10.0); %Lymphocytes 22.1 % (21.0-51.0); %Monocytes 9.9 % (0.0-10.0); %Neutrophils 43.5 % (42.0-75.0); Hematocrit 25.8 % (42.0-52.0); Hemoglobin 8.6 g/dL (14.0-18.0); Mean Corpuscular HGB CONC 33.3 g/dL (32.0-36.0); Mean Corpuscular Hemoglobin 32.8 pg (27.0-31.0); Mean Corpuscular Volume 98.5 fL (78.0-98.0); Platelet Count 102 10x3/uL (130-400); RBC Distribution Width 17.4 % (11.5-14.5); Red Blood Cell (RBC) Count 2.62 mill/uL (4.70-6.10)
[2024-09-12] MEDS: Sodium Bicarbonate Tab 325 MG TAB PO SCH (08:09)
[2024-09-12] MEDS: Bumetanide 1 MG/4 ML VIAL IVP SCH ×2 (16:23→20:20)
[2024-09-12] MEDS: Albumin 25% 25 GM (100 mL) BOT IVPB SCH (16:49)
[2024-09-12 19:07] LABS: Actual Bicarbonate (HCO3a) 21.9 mEq/L (22-28); Base Excess (BEa) -0.4 mEq/L (-2.0 to +3.0); CO2 Tension 28.2 mmHg (35.0-45.0); Calcium, Ionized (arterial) 0.99 mmol/L (1.12-1.30); Carboxyhemoglobin (COHb) 0.3 gm% (0.0-3.0); Hematocrit-ABG 29 % (42.0-52.0); Hemoglobin (Hb) 9.9 g/dL (14.0-18.0); O2 Tension (PaO2), arterial 110.9 mmHg (> 70.0); Potassium - ABG Lab 3.92 mmol/L (3.70-5.30); pH, Arterial 7.509 (7.35-7.45)
[2024-09-12 19:08] LABS: Puncture Site Left Radial artery
[2024-09-13] MEDS: QUEtiapine 25 MG TAB PO SCH (01:45)
[2024-09-13] MEDS: Bumetanide 1 MG/4 ML VIAL IVP SCH ×2 (06:09→14:40)
[2024-09-13 06:18] LABS: Hematocrit 25.4 % (42.0-52.0); Hemoglobin 8.6 g/dL (14.0-18.0); Mean Corpuscular HGB CONC 33.9 g/dL (32.0-36.0); Mean Corpuscular Hemoglobin 33.7 pg (27.0-31.0); Mean Corpuscular Volume 99.6 fL (78.0-98.0); Mean Platelet Volume 9.9 fL (7.4-10.4); Platelet Count 101 10x3/uL (130-400); RBC Distribution Width 17.3 % (11.5-14.5); Red Blood Cell (RBC) Count 2.55 mill/uL (4.70-6.10)
[2024-09-13 06:35] LABS: Albumin 3.5 g/dL (3.4-4.8); Anion Gap 17 mmol/L (10-20); BUN (Urea Nitrogen) 16 mg/dL (8.4-25.7); BUN/Creatinine Ratio 11.35; Calc. Creatinine Clearance 44 mL/min (70-130); Calcium 7.3 mg/dL (7.8-10.44); Carbon Dioxide 22 mmol/L (23-31); Chloride 106 mmol/L (98-107); Estimated GFR 52; Glucose 127 mg/dL (83-110); Phosphorus 3.5 mg/dL (2.3-4.7); Potassium 3.3 mmol/L (3.5-5.1); Sodium 142 mmol/L (136-145)
[2024-09-13 06:57] LABS: Anisocytosis SLIGHT = 6-15 cells HPF (0-5); Band 7 % (5-11); Eosinophils 3 % (0-10); Lymphocytes 25 % (21-51); Macrocytosis SLIGHT = 6-15 cells HPF (0-5); Monocytes 4 % (0-10); Myelocyte 1 % (0-0); Neutrophil 56 % (42-75); Nucleated RBC (Manual Ct) 1 % (0); Platelet Adequacy Comment Platelets Decreased; Polychromasia SLIGHT = 2-3 cells HPF (0-2); Reactive Lymphocytes 4 % (0-10); Smudge Cells 6.8 %
[2024-09-13] MEDS ORDERED: Potassium Chloride 20 MEQ TAB PO ONE (07:17)
[2024-09-13] MEDS ORDERED: Spironolactone 25 MG TAB PO SCH (08:00)
[2024-09-13] MEDS: FLU (Fluad Triv) TS24-25 (65UP)/MF59C/PF 45 MCG/0.5 ML Syringe IM ONE (08:24)
[2024-09-13 08:30] LABS: Magnesium 1.6 mg/dL (1.6-2.6)
[2024-09-13] MEDS: Spironolactone 25 MG TAB PO SCH (09:23)
[2024-09-13] MEDS: Empagliflozin 10 MG TAB PO SCH (09:23)
[2024-09-13] MEDS: Metolazone 5 MG TAB PO SCH (09:23)
[2024-09-13] MEDS: Magnesium 2 GM/50 ML(in water) 2 GM in Premix 1 BAG IVPB SCH (09:24)
[2024-09-13] MEDS: Potassium Chloride 20 MEQ in Premix 1 BAG IVPB SCH ×2 (09:24→14:40)
[2024-09-13] MEDS: Carvedilol 3.125 MG TAB PO SCH (09:28)
[2024-09-13] MEDS ORDERED: Morphine 2 MG/ML VIAL SLOW IVP PRN (15:25)
[2024-09-13] MEDS: Zolpidem Tartrate 5 MG TAB PO PRN (20:37)
[2024-09-13] MEDS ORDERED: QUEtiapine 25 MG TAB PO SCH (21:00)
[2024-09-13] MEDS: Morphine 2 MG/ML VIAL SLOW IVP PRN (23:02)
[2024-09-14 07:28] LABS: Hematocrit 28.6 % (42.0-52.0); Hemoglobin 9.5 g/dL (14.0-18.0); Mean Corpuscular HGB CONC 33.2 g/dL (32.0-36.0); Mean Corpuscular Hemoglobin 32.8 pg (27.0-31.0); Mean Corpuscular Volume 98.6 fL (78.0-98.0); Platelet Count 117 10x3/uL (130-400); RBC Distribution Width 17.4 % (11.5-14.5)
[2024-09-14 07:45] LABS: Albumin 3.7 g/dL (3.4-4.8); Anion Gap 21 mmol/L (10-20); BUN (Urea Nitrogen) 20 mg/dL (8.4-25.7); BUN/Creatinine Ratio 12.42; Calc. Creatinine Clearance 39 mL/min (70-130); Calcium 8.4 mg/dL (7.8-10.44); Carbon Dioxide 25 mmol/L (23-31); Chloride 97 mmol/L (98-107); Estimated GFR 45; Glucose 146 mg/dL (83-110); Magnesium 1.9 mg/dL (1.6-2.6); Phosphorus 3.5 mg/dL (2.3-4.7); Potassium 3.5 mmol/L (3.5-5.1); Sodium 139 mmol/L (136-145)
[2024-09-14 09:29] LABS: Band 11 % (5-11); Eosinophils 5 % (0-10); Lymphocytes 11 % (21-51); Metamyelocyte 2 % (0-0); Monocytes 6 % (0-10); Neutrophil 55 % (42-75); Nucleated RBC (Manual Ct) 1 % (0); Plasma Cells 11 % (0-0); Platelet Adequacy Comment Platelets Decreased; Polychromasia SLIGHT = 2-3 cells HPF (0-2); Smudge Cells 11.8 %
[2024-09-14] MEDS: Potassium Chloride 20 MEQ TAB PO SCH (10:04)
[2024-09-14] MEDS: Albumin 25% 25 GM (100 mL) BOT IVPB SCH (10:19)
[2024-09-14] MEDS: Magnesium Sulfate In Water 4 GM in Premix 1 BAG IVPB SCH (11:03)
[2024-09-14] MEDS: Dexamethasone 40 MG in Sodium Chloride 0.9% 50 ML IVPB SCH (11:59)
[2024-09-14] MEDS: Pantoprazole DR 40 MG TAB PO SCH (12:02)
[2024-09-14] MEDS: Dexamethasone Sod Phosphate 40 MG in Sodium Chloride 0.9% 50 ML IVPB SCH (12:03)
[2024-09-14] MEDS ORDERED: ALPRAZolam 0.25 MG TAB PO PRN (15:15)
[2024-09-14] MEDS: fentaNYL 12 mcg Patch TD SCH (16:26)
[2024-09-14] MEDS: HYDROcodone/Acetaminophen 5/325 mg Tablet PO PRN (20:37)
[2024-09-15 04:45] LABS: Hematocrit 26.8 % (42.0-52.0); Hemoglobin 9.2 g/dL (14.0-18.0); Mean Corpuscular HGB CONC 34.3 g/dL (32.0-36.0); Mean Corpuscular Hemoglobin 33.1 pg (27.0-31.0); Mean Corpuscular Volume 96.4 fL (78.0-98.0); Mean Platelet Volume 10.1 fL (7.4-10.4); Platelet Count 99 10x3/uL (130-400); RBC Distribution Width 16.6 % (11.5-14.5); Red Blood Cell (RBC) Count 2.78 mill/uL (4.70-6.10)
[2024-09-15 05:00] LABS: ALT (SGPT) 23 U/L (8-55); AST (SGOT) 39 U/L (5-34); Albumin 4.1 g/dL (3.4-4.8); Alkaline Phosphatase 77 U/L (40-110); Anion Gap 19 mmol/L (10-20); BUN (Urea Nitrogen) 39 mg/dL (8.4-25.7); BUN/Creatinine Ratio 23.35; Bilirubin, Total 1.4 mg/dL (0.2-1.2); Calc. Creatinine Clearance 37 mL/min (70-130); Calcium 8.3 mg/dL (7.8-10.44); Carbon Dioxide 26 mmol/L (23-31); Chloride 97 mmol/L (98-107); Estimated GFR 43; Globulin 1.8 g/dL (2.4-3.5); Glucose 219 mg/dL (83-110); Magnesium 2.7 mg/dL (1.6-2.6); Phosphorus 4.9 mg/dL (2.3-4.7); Potassium 3.9 mmol/L (3.5-5.1); Protein, Total 5.9 g/dL (5.8-8.1); Sodium 138 mmol/L (136-145); Uric Acid 13.1 mg/dL (3.5-7.2)
[2024-09-15 06:05] LABS: Anisocytosis SLIGHT = 6-15 cells HPF (0-5); Band 7 % (5-11); Eosinophils 4 % (0-10); Lymphocytes 13 % (21-51); Monocytes 2 % (0-10); Myelocyte 1 % (0-0); Neutrophil 72 % (42-75); Platelet Adequacy Comment Platelets Decreased; Polychromasia SLIGHT = 2-3 cells HPF (0-2); Toxic Granulation SLIGHT
[2024-09-15] MEDS ORDERED: Dexamethasone 40 MG in Sodium Chloride 0.9% 50 ML IVPB SCH (07:45)
[2024-09-15] MEDS ORDERED: SODIUM CHLORIDE 0.9% IVPB SCH ×3 (08:00→08:45)
[2024-09-15] MEDS ORDERED: CYCLOPHOSPHAMIDE IVPB SCH ×3 (08:00→08:45)
[2024-09-15] MEDS: Dexamethasone Sod Phosphate 40 MG in Sodium Chloride 0.9% 50 ML IVPB SCH (09:16)
[2024-09-15] MEDS: Febuxostat 40 MG TAB PO SCH (09:20)
[2024-09-15] MEDS: valACYclovir 500 MG TAB PO SCH (09:20)
[2024-09-15] MEDS: Pantoprazole DR 40 MG TAB PO SCH (09:21)
[2024-09-15] MEDS: Bumetanide 1 MG/4 ML VIAL IVP SCH (09:21)
[2024-09-15] MEDS: BORTEZOMIB SC SCH (15:33)
[2024-09-15] MEDS: SODIUM CHLORIDE 0.9% SC SCH (15:33)
[2024-09-15] MEDS: Cyclophosphamide 500 MG in Sodium Chloride 0.9% 250 ML 250 ML IVPB SCH (15:34)
[2024-09-15 15:50] LABS: Fibrinogen 277 mg/dL (253-463); Platelet Count 103 10x3/uL (130-400)
[2024-09-15 15:51] LABS: INR-International Normal Ratio 1.6; Prothrombin Time 18.9 sec (12.0-14.7)
[2024-09-15] MEDS ORDERED: Prochlorperazine Maleate 5 MG TAB PO PRN (15:56)
[2024-09-15 15:59] LABS: D-Dimer Test 11.85 mcg/mL (0.27-0.43)
[2024-09-16 06:09] LABS: Platelet Count 80 10x3/uL (130-400)
[2024-09-16 06:11] LABS: Hematocrit 27.4 % (42.0-52.0); Hemoglobin 9.4 g/dL (14.0-18.0); Mean Corpuscular HGB CONC 34.3 g/dL (32.0-36.0); Mean Corpuscular Hemoglobin 33.8 pg (27.0-31.0); Mean Corpuscular Volume 98.6 fL (78.0-98.0); Mean Platelet Volume 10.5 fL (7.4-10.4); Platelet Count 80 10x3/uL (130-400); RBC Distribution Width 16.5 % (11.5-14.5); Red Blood Cell (RBC) Count 2.78 mill/uL (4.70-6.10)
[2024-09-16 06:21] LABS: ALT (SGPT) 18 U/L (8-55); AST (SGOT) 32 U/L (5-34); Albumin 4.2 g/dL (3.4-4.8); Alkaline Phosphatase 75 U/L (40-110); Anion Gap 17 mmol/L (10-20); BUN (Urea Nitrogen) 69 mg/dL (8.4-25.7); Bilirubin, Total 1.4 mg/dL (0.2-1.2); Calc. Creatinine Clearance 39 mL/min (70-130); Calcium 8.3 mg/dL (7.8-10.44); Carbon Dioxide 24 mmol/L (23-31); Chloride 100 mmol/L (98-107); Estimated GFR 44; Globulin 1.9 g/dL (2.4-3.5); Glucose 281 mg/dL (83-110); Potassium 4.3 mmol/L (3.5-5.1); Protein, Total 6.1 g/dL (5.8-8.1); Sodium 137 mmol/L (136-145); Uric Acid 3.7 mg/dL (3.5-7.2)
[2024-09-16 06:24] LABS: Fibrinogen 211 mg/dL (253-463)
[2024-09-16 06:25] LABS: INR-International Normal Ratio 1.5; PTT 48.4 sec (22.9-36.1); Prothrombin Time 18.4 sec (12.0-14.7)
[2024-09-16 06:44] LABS: Anisocytosis SLIGHT = 6-15 cells HPF (0-5); Band 4 % (5-11); Burr Cells SLIGHT = 2-5 cells HPF (0-1); Eosinophils 1 % (0-10); Lymphocytes 3 % (21-51); Monocytes 5 % (0-10); Neutrophil 87 % (42-75); Nucleated RBC (Manual Ct) 1 % (0); Platelet Adequacy Comment Platelets Decreased; Poikilocytosis SLIGHT = 6-15 cells HPF (0-5); Polychromasia SLIGHT = 2-3 cells HPF (0-2)
[2024-09-16 06:48] LABS: D-Dimer Test 18.27 mcg/mL (0.27-0.43)
[2024-09-16] MEDS: Sodium Chloride 0.65% Nasal 44 ML BOT EA NARE PRN (19:10)
[2024-09-17 04:43] LABS: Platelet Count 54 10x3/uL (130-400)
[2024-09-17 04:44] LABS: #Basophils Less than 0.03 10x3/uL (0.0-0.2); #Eosinophils Less than 0.03 10x3/uL (0.0-0.7); %Basophils 0.1 % (0.0-1.0); %Lymphocytes 4.9 % (21.0-51.0); %Monocytes 4.9 % (0.0-10.0); %Neutrophils 88.8 % (42.0-75.0); Hematocrit 27.3 % (42.0-52.0); Hemoglobin 9.3 g/dL (14.0-18.0); Mean Corpuscular HGB CONC 34.1 g/dL (32.0-36.0); Mean Corpuscular Hemoglobin 33.1 pg (27.0-31.0); Mean Corpuscular Volume 97.2 fL (78.0-98.0); Platelet Count 54 10x3/uL (130-400); RBC Distribution Width 16.3 % (11.5-14.5); Red Blood Cell (RBC) Count 2.81 mill/uL (4.70-6.10)
[2024-09-17 04:53] LABS: Fibrinogen 164 mg/dL (253-463)
[2024-09-17 04:54] LABS: INR-International Normal Ratio 1.4; Prothrombin Time 17.6 sec (12.0-14.7)
[2024-09-17 04:55] LABS: PTT 33.1 sec (22.9-36.1)
[2024-09-17 04:57] LABS: ALT (SGPT) 23 U/L (8-55); AST (SGOT) 24 U/L (5-34); Albumin 4.4 g/dL (3.4-4.8); Alkaline Phosphatase 76 U/L (40-110); Anion Gap 16 mmol/L (10-20); BUN (Urea Nitrogen) 78 mg/dL (8.4-25.7); Bilirubin, Total 1.6 mg/dL (0.2-1.2); Calc. Creatinine Clearance 37 mL/min (70-130); Calcium 8.4 mg/dL (7.8-10.44); Carbon Dioxide 23 mmol/L (23-31); Chloride 103 mmol/L (98-107); Estimated GFR 41; Globulin 1.9 g/dL (2.4-3.5); Glucose 326 mg/dL (83-110); Potassium 4.3 mmol/L (3.5-5.1); Protein, Total 6.3 g/dL (5.8-8.1); Sodium 138 mmol/L (136-145); Uric Acid 3.5 mg/dL (3.5-7.2)
[2024-09-17 05:02] LABS: D-Dimer Test 16.07 mcg/mL (0.27-0.43)
[2024-09-17] MEDS: Fluticasone Propionate Nasal Spray 16 gm Bottle NASAL SCH (20:13)
[2024-09-18 06:29] LABS: #Basophils Less than 0.03 10x3/uL (0.0-0.2); #Eosinophils Less than 0.03 10x3/uL (0.0-0.7); %Basophils 0.1 % (0.0-1.0); %Lymphocytes 3.3 % (21.0-51.0); %Monocytes 4.6 % (0.0-10.0); %Neutrophils 90.8 % (42.0-75.0); Hematocrit 27.2 % (42.0-52.0); Hemoglobin 9.1 g/dL (14.0-18.0); Mean Corpuscular HGB CONC 33.5 g/dL (32.0-36.0); Mean Corpuscular Hemoglobin 33.7 pg (27.0-31.0); Mean Corpuscular Volume 100.7 fL (78.0-98.0); Mean Platelet Volume 11.5 fL (7.4-10.4); Platelet Count 49 10x3/uL (130-400); RBC Distribution Width 16.2 % (11.5-14.5)
[2024-09-18 06:35] LABS: Phosphorus 4.3 mg/dL (2.3-4.7)
[2024-09-18 06:36] LABS: Anion Gap 18 mmol/L (10-20); BUN (Urea Nitrogen) 80 mg/dL (8.4-25.7); Calc. Creatinine Clearance 38 mL/min (70-130); Calcium 8.5 mg/dL (7.8-10.44); Carbon Dioxide 19 mmol/L (23-31); Chloride 103 mmol/L (98-107); Estimated GFR 43; Glucose 376 mg/dL (83-110); Magnesium 2.7 mg/dL (1.6-2.6); Potassium 4.2 mmol/L (3.5-5.1); Sodium 136 mmol/L (136-145)
[2024-09-18 06:39] LABS: Fibrinogen 152 mg/dL (253-463)
[2024-09-18 06:40] LABS: INR-International Normal Ratio 1.4; PTT 28.4 sec (22.9-36.1); Prothrombin Time 17.6 sec (12.0-14.7)
[2024-09-18 06:48] LABS: D-Dimer Test 9.85 mcg/mL (0.27-0.43)
[2024-09-18] MEDS: Sodium Bicarbonate Tab 325 MG TAB PO SCH (08:35)
[2024-09-18] MEDS: Bumetanide 1 MG TAB PO SCH (08:35)
[2024-09-18 10:39] VITALS: BMI 24.5
[2024-09-18 13:26] VITALS: BP 114/80; TEMP 97.8
== END 2024-09-18 13:20 | disposition short-term general hospital (02) | DRG 840 ==
LOC: ERS 19:33 → 2NO 23:36 → IMCU/EMU 09-12 18:54 → MSONC 09-15 12:45
PROVIDERS: ADMIT Student in an Organized Health Care Education/Training Program; ATTEND Student in an Organized Health Care Education/Training Program
PROC: 30233J1 Transfusion of Nonautologous Serum Albumin into Peripheral Vein, Percutaneous Approach (ICD-10-PCS; 2024-09-03)
PROC: 07DR3ZX Extraction of Iliac Bone Marrow, Percutaneous Approach, Diagnostic (ICD-10-PCS; principal; 2024-09-06)
PROC: 30233N1 Transfusion of Nonautologous Red Blood Cells into Peripheral Vein, Percutaneous Approach (ICD-10-PCS; 2024-09-09)
PROC: 5A09457 Assistance with Respiratory Ventilation, 24-96 Consecutive Hours, Continuous Positive Airway Pressure (ICD-10-PCS; 2024-09-12)
PROC: 4A033R1 Measurement of Arterial Saturation, Peripheral, Percutaneous Approach (ICD-10-PCS; 2024-09-12)
DX: C90.10 Plasma cell leukemia not having achieved remission (principal); E43 Unspecified severe protein-calorie malnutrition; G93.41 Metabolic encephalopathy; I50.21 Acute systolic (congestive) heart failure; J96.01 Acute respiratory failure with hypoxia; D61.818 Other pancytopenia; N17.9 Acute kidney failure, unspecified; L03.114 Cellulitis of left upper limb; L02.414 Cutaneous abscess of left upper limb; I13.0 Hypertensive heart and chronic kidney disease with heart failure and stage 1 through stage 4 chronic kidney disease, or unspecified chronic kidney disease; C90.00 Multiple myeloma not having achieved remission; D63.1 Anemia in chronic kidney disease; D69.6 Thrombocytopenia, unspecified; E83.52 Hypercalcemia; D63.0 Anemia in neoplastic disease; E83.42 Hypomagnesemia; K59.00 Constipation, unspecified; Z91.041 Radiographic dye allergy status; E83.39 Other disorders of phosphorus metabolism; E78.5 Hyperlipidemia, unspecified; Z86.73 Personal history of transient ischemic attack (TIA), and cerebral infarction without residual deficits; E11.65 Type 2 diabetes mellitus with hyperglycemia; E87.6 Hypokalemia; N18.30 Chronic kidney disease, stage 3 unspecified; N40.1 Benign prostatic hyperplasia with lower urinary tract symptoms
CPT/HCPCS: 36415; 36416; 36430; 36600; 38222; 70450; 71045; 71046; 71275; 76770; 77012; 77075; 80048; 80053; 80069; 80307; 81001; 82040; 82140; 82306; 82340; 82378; 82533; 82550; 82570; 82607; 82728; 82805; 83519; 83540; 83550; 83615; 83690; 83735; 83880; 83970; 84100; 84156; 84166; 84443; 84484; 84550; 84590; 85025; 85046; 85049; 85097; 85300; 85362; 85379; 85384; 85610; 85730; 86141; 86850; 86900; 86901; 87040; 87428; 88184; 88185; 88237; 88264; 88280; 88305; 88311; 88313; 88341; 88342; 88365; 93005; 93010; 93306; 94660; 96374; 96375; J0630; J1100; J1200; J1940; J2272; J2405; J2550; J2783; J2919; J3475; J3480; J3489; J3490; J7030; J7050; J7120; J9041; J9075; P9016; P9047; Q0162; Q5105; Q9967

== ENCOUNTER 2024-10-27 01:32 | Inpatient (IN) | payer MEDICARE ==
[2024-10-27 02:12] LABS: Hematocrit 30.4 % (42.0-52.0); Hemoglobin 10.2 g/dL (14.0-18.0); Mean Corpuscular HGB CONC 33.6 g/dL (32.0-36.0); Mean Corpuscular Hemoglobin 32.9 pg (27.0-31.0); Mean Corpuscular Volume 98.1 fL (78.0-98.0); Mean Platelet Volume 10.2 fL (7.4-10.4); Platelet Count 64 10x3/uL (130-400); RBC Distribution Width 18.8 % (11.5-14.5)
[2024-10-27 02:13] LABS: INR-International Normal Ratio 1.9; Prothrombin Time 21.8 sec (12.0-14.7)
[2024-10-27 02:14] LABS: PTT 51.2 sec (22.9-36.1)
[2024-10-27] MEDS ORDERED: Piperacillin/Tazobactam 4.5 GM VIAL ONE (02:15)
[2024-10-27] MEDS ORDERED: diphenhydrAMINE 50 MG/ML VIAL ONE (02:15)
[2024-10-27] MEDS ORDERED: methylPREDNISolone Sod Succ 40 MG VIAL ONE (02:15)
[2024-10-27] MEDS ORDERED: Famotidine/PF 20 mg/2ml Vial ONE (02:16)
[2024-10-27] MEDS ORDERED: Pantoprazole 40 MG VIAL ONE (02:16)
[2024-10-27] MEDS ORDERED: Sodium Chloride 0.9% 100 ML ONE (02:16)
[2024-10-27 02:23] LABS: Bacteria/HPF 4+ HPF (None Seen); Bilirubin Negative (Negative); Blood, Urine 3+ (Negative); CAUTI Indications for Culture Immunosuppressed; Clarity Turbid (Clear); Glucose, Urine (Dipstick) Normal (Negative); Ketone, Urine Negative (Negative); Leukocyte 500 Leu/uL (Negative); Nitrite Negative (Negative); Protein, Urine (Dipstick) 30 mg/dL (Neg-Trace); RBC/HPF Greater than 50 HPF (0-3); Specific Gravity, Urine 1.003 (1.002-1.036); Squamous Epithelial None Seen HPF (0-3); Urobilinogen Normal mg/dL (Less than 2); WBC/HPF Greater than 50 HPF (0-3)
[2024-10-27 02:25] LABS: Urine Culture Reflex Yes Yes
[2024-10-27 02:31] LABS: Troponin I Less than 0.010 ng/mL (< 0.028)
[2024-10-27 02:32] LABS: Anisocytosis SLIGHT = 6-15 cells HPF (0-5); Band 8 % (5-11); Hypochromia SLIGHT = 6-15 cells HPF (0-5); Lymphocytes 15 % (21-51); Monocytes 8 % (0-10); Neutrophil 62 % (42-75); Platelet Adequacy Comment Platelets Decreased; Poikilocytosis SLIGHT = 6-15 cells HPF (0-5); Polychromasia MODERATE = 3-4 cells HPF (0-2)
[2024-10-27 02:35] LABS: Albumin 2.2 g/dL (3.4-4.8); Chloride 118 mmol/L (98-107); Glucose 131 mg/dL (83-110); Potassium 5.1 mmol/L (3.5-5.1); Protein, Total 3.8 g/dL (5.8-8.1); Sodium 140 mmol/L (136-145)
[2024-10-27 02:36] LABS: Analyzer IN Cardio ER; Base Excess -8.8 mEq/L (-2.0 to +3.0); Calcium, Ionized (venous) 1.03 mmol/L (1.16-1.32); Chloride (VBG) 112 mmol/L (98-106); Hematocrit-VBG 30 % (42.0-52.0); Hemoglobin (Hb) 10.1 g/dL (12.6-17.4); Potassium (VBG) 3.22 mmol/L (3.70-5.30); Sodium 138 mmol/L (133-146); pH (venous) 7.406 (7.32-7.43)
[2024-10-27 02:36] LABS: ALT (SGPT) 17 U/L (8-55); AST (SGOT) 36 U/L (5-34); Alkaline Phosphatase 115 U/L (40-110); Anion Gap 16 mmol/L (10-20); BUN (Urea Nitrogen) 15 mg/dL (8.4-25.7); Bilirubin, Total 0.7 mg/dL (0.2-1.2); Calc. Creatinine Clearance 0 mL/min (70-130); Carbon Dioxide 11 mmol/L (23-31); Estimated GFR 74; Globulin 1.6 g/dL (2.4-3.5); Magnesium 1.7 mg/dL (1.6-2.6)
[2024-10-27 02:37] LABS: Actual Bicarbonate (HCO3v) 14.4 mEq/L (22-28)
[2024-10-27 02:38] LABS: Calcium 6.7 mg/dL (7.6-10.4)
[2024-10-27] MEDS ORDERED: NOREPINEPHRINE 8 MG/250 ML-D5W 250 ML ONE (03:01)
[2024-10-27] MEDS ORDERED: Vasopressin 20 UNITS/ML VIAL ONE (04:14)
[2024-10-27] MEDS ORDERED: EPINEPHrine 1 MG/ML VIAL ONE (04:37)
[2024-10-27 04:56] LABS: Lactic Acid 1.69 mmol/L (0.5-2.2)
[2024-10-27] MEDS ORDERED: Senokot S 8.6-50 MG TAB PO PRN (05:40)
[2024-10-27] MEDS ORDERED: Calcium Carbonate 500 MG ChewTAB PO PRN (05:40)
[2024-10-27] MEDS ORDERED: Acetaminophen 325 MG TAB PO PRN (05:40)
[2024-10-27] MEDS ORDERED: Vasopressin 20 UNITS in Sodium Chloride 0.9% 50 ML IV SCH (05:45)
[2024-10-27] MEDS ORDERED: Glucagon 1 MG/ML KIT IM PRN (05:46)
[2024-10-27] MEDS ORDERED: Dextrose 50% Abboject 50 ML SYRINGE SLOW IVP PRN (05:46)
[2024-10-27] MEDS ORDERED: Dextrose 5% in Water 1,000 ML IV PRN (05:46)
[2024-10-27 06:46] VITALS: BMI 21.7
[2024-10-27] MEDS: Lactated Ringer's 1,000 ML IV SCH (08:08)
[2024-10-27] MEDS: Vancomycin (BATCH) 1.5 GM in Premix 1 BAG IVPB SCH (08:15)
[2024-10-27] MEDS: Hydrocortisone Sod Succ/PF 100 mg/2 ml Vial IVP SCH ×2 (08:20→12:31)
[2024-10-27] MEDS: Cefepime 2 GM in Sodium Chloride 0.9% 100 ML IVPB SCH ×2 (08:20→18:33)
[2024-10-27] MEDS: Famotidine/PF 20 mg/2ml Vial SLOW IVP SCH (08:30)
[2024-10-27] MEDS ORDERED: Iopamidol-370 76% 500 ML MDV (1 ML CHARGE) ONE (10:22)
[2024-10-27] MEDS: Magnesium 2 GM/50 ML(in water) 2 GM in Premix 1 BAG IVPB SCH (10:25)
[2024-10-27 10:52] LABS: Anion Gap 13 mmol/L (10-20); BUN (Urea Nitrogen) 19 mg/dL (8.4-25.7); Calc. Creatinine Clearance 44 mL/min (70-130); Calcium 6.8 mg/dL (7.8-10.44); Carbon Dioxide 13 mmol/L (23-31); Chloride 116 mmol/L (98-107); Estimated GFR 55; Glucose 153 mg/dL (83-110); Potassium 3.6 mmol/L (3.5-5.1); Sodium 138 mmol/L (136-145)
[2024-10-27] MEDS ORDERED: Senokot 8.6 MG TAB PO PRN (11:22)
[2024-10-27] MEDS ORDERED: Promethazine HCl 12.5 MG SUPP PR PRN (11:22)
[2024-10-27] MEDS: Calcium Chloride 1 GM/10 ML Abboject SYRINGE IVP SCH (12:23)
[2024-10-27] MEDS: Albumin 25% 25 GM (100 mL) BOT IVPB SCH (12:24)
[2024-10-27] MEDS: Lactated Ringer's 500 ML IV SCH (12:26)
[2024-10-27] MEDS: Hydrocortisone Sod Succ/PF 100 mg/2 ml Vial ONE (12:32)
[2024-10-27] MEDS: oxyCODONE 5 MG TAB PO SCH (12:46)
[2024-10-27] MEDS: Furosemide 40 MG TAB PO SCH (12:48)
[2024-10-27] MEDS: Vancomycin HCl 750 MG in Sodium Chloride 0.9% 250 ML 250 ML IVPB SCH (13:50)
[2024-10-27] MEDS ORDERED: Electrolyte Replacement Protocol FS SCH (16:45)
[2024-10-27] MEDS: Vasopressin In 0.9 % NaCl 40 UNIT in Premix 1 BAG IV SCH (17:08)
[2024-10-27 17:42] LABS: Albumin 2.4 g/dL (3.4-4.8); Anion Gap 13 mmol/L (10-20); BUN (Urea Nitrogen) 19 mg/dL (8.4-25.7); Calc. Creatinine Clearance 45 mL/min (70-130); Calcium 7.5 mg/dL (7.8-10.44); Carbon Dioxide 11 mmol/L (23-31); Chloride 116 mmol/L (98-107); Estimated GFR 57; Glucose 238 mg/dL (83-110); Phosphorus 4.8 mg/dL (2.3-4.7); Potassium 3.9 mmol/L (3.5-5.1); Sodium 136 mmol/L (136-145)
[2024-10-27] MEDS: Phytonadione 5 MG TAB PO SCH (18:33)
[2024-10-27] MEDS: oxyCODONE 5 MG TAB PO PRN (18:45)
[2024-10-27] MEDS: Insulin Lispro 100 UNIT/ML 10 ML VIAL SC PRN (19:13)
[2024-10-27] MEDS: Docusate 100 MG CAP PO SCH (20:07)
[2024-10-27] MEDS: NOREPINEPHRINE 8 MG/250 ML-D5W 250 ML IVPB SCH (20:09)
[2024-10-27] MEDS: Ondansetron PF 4 MG/2 ML Vial IVP PRN (20:37)
[2024-10-27] MEDS ORDERED: Carvedilol 3.125 MG TAB PO SCH (21:00)
[2024-10-27] MEDS: diphenhydrAMINE 50 MG/ML VIAL IVP SCH (21:02)
[2024-10-27] MEDS: Preparation H Ointment 28 GM TUBE TOP SCH (21:08)
[2024-10-28] MEDS: Insulin Lispro 100 UNIT/ML 10 ML VIAL SC PRN (00:36)
[2024-10-28 04:11] LABS: Vancomycin, Random 28.6 ug/mL (See Comment)
[2024-10-28 04:12] LABS: Phosphorus 4.4 mg/dL (2.3-4.7)
[2024-10-28 04:13] LABS: INR-International Normal Ratio 3.1; Lactic Acid 1.68 mmol/L (0.5-2.2); Prothrombin Time 32.2 sec (12.0-14.7)
[2024-10-28 04:14] LABS: PTT 89.6 sec (22.9-36.1)
[2024-10-28 04:17] LABS: ALT (SGPT) 27 U/L (8-55); AST (SGOT) 39 U/L (5-34); Alkaline Phosphatase 105 U/L (40-110); Anion Gap 12 mmol/L (10-20); BUN (Urea Nitrogen) 25 mg/dL (8.4-25.7); Bilirubin, Total 0.7 mg/dL (0.2-1.2); Calc. Creatinine Clearance 47 mL/min (70-130); Calcium 7.3 mg/dL (7.8-10.44); Carbon Dioxide 12 mmol/L (23-31); Chloride 116 mmol/L (98-107); Estimated GFR 59; Globulin 1.3 g/dL (2.4-3.5); Glucose 223 mg/dL (83-110); Magnesium 2.4 mg/dL (1.6-2.6); Potassium 3.9 mmol/L (3.5-5.1); Protein, Total 4.3 g/dL (5.8-8.1); Sodium 136 mmol/L (136-145)
[2024-10-28 04:48] LABS: Hematocrit 21.6 % (42.0-52.0); Hemoglobin 7.4 g/dL (14.0-18.0); Mean Corpuscular HGB CONC 34.3 g/dL (32.0-36.0); Mean Corpuscular Hemoglobin 32.7 pg (27.0-31.0); Mean Corpuscular Volume 95.6 fL (78.0-98.0); Mean Platelet Volume 11.6 fL (7.4-10.4); Platelet Count 40 10x3/uL (130-400); RBC Distribution Width 20.3 % (11.5-14.5); Red Blood Cell (RBC) Count 2.26 mill/uL (4.70-6.10)
[2024-10-28 05:19] LABS: Anisocytosis SLIGHT = 6-15 cells HPF (0-5); Band 42 % (5-11); Hypochromia SLIGHT = 6-15 cells HPF (0-5); Large Platelets 2.7 % (0-5); Lymphocytes 4 % (21-51); Metamyelocyte 5 % (0-0); Monocytes 14 % (0-10); Neutrophil 36 % (42-75); Nucleated RBC (Manual Ct) 1 % (0); Platelet Adequacy Comment Platelets Decreased; Poikilocytosis SLIGHT = 6-15 cells HPF (0-5); Polychromasia SLIGHT = 2-3 cells HPF (0-2)
[2024-10-28] MEDS: Sodium Bicarbonate 150 MEQ in Sterile Water 1,000 ML IV SCH (06:30)
[2024-10-28] MEDS: Pantoprazole DR 40 MG TAB PO SCH (08:30)
[2024-10-28] MEDS: valACYclovir 500 MG TAB PO SCH (08:31)
[2024-10-28] MEDS: Cyanocobalamin (Vitamin B-12) 1,000 MCG TAB PO SCH (08:32)
[2024-10-28] MEDS: Atorvastatin Calcium 40 MG TAB PO SCH (08:32)
[2024-10-28] MEDS: Lactated Ringer's 500 ML IV SCH (09:47)
[2024-10-28] MEDS: FLU (Fluarix Triv) TS24-25(6MOS UP)/PF 45 MCG/0.5 ML Syringe IM ONE (09:48)
[2024-10-28 11:09] LABS: Hematocrit 20.9 % (42.0-52.0); Hemoglobin 7.2 g/dL (14.0-18.0)
[2024-10-28 12:39] LABS: Anion Gap 12 mmol/L (10-20); BUN (Urea Nitrogen) 29 mg/dL (8.4-25.7); Calc. Creatinine Clearance 53 mL/min (70-130); Calcium 7.5 mg/dL (7.8-10.44); Carbon Dioxide 14 mmol/L (23-31); Chloride 115 mmol/L (98-107); Estimated GFR 67; Glucose 193 mg/dL (83-110); Potassium 3.4 mmol/L (3.5-5.1); Sodium 138 mmol/L (136-145)
[2024-10-28] MEDS: Vancomycin 1 GM in Premix 1 BAG IVPB SCH (13:54)
[2024-10-28] MEDS: Sodium Bicarbonate Tab 325 MG TAB PO SCH (14:22)
[2024-10-28] MEDS: Potassium Bicarbonate/Cit Ac 20 MEQ TAB PO SCH (14:22)
[2024-10-28 19:55] LABS: Hematocrit 27.3 % (42.0-52.0); Hemoglobin 9.6 g/dL (14.0-18.0)
[2024-10-28] MEDS: Phytonadione 5 MG TAB PO SCH (20:29)
[2024-10-28] MEDS: Cefepime 2 GM in Sodium Chloride 0.9% 100 ML IVPB SCH (20:29)
[2024-10-29 04:27] LABS: Hematocrit 27.5 % (42.0-52.0); Hemoglobin 9.4 g/dL (14.0-18.0); Mean Corpuscular HGB CONC 34.2 g/dL (32.0-36.0); Mean Corpuscular Hemoglobin 32.4 pg (27.0-31.0); Mean Corpuscular Volume 94.8 fL (78.0-98.0); Mean Platelet Volume 12.3 fL (7.4-10.4); Platelet Count 45 10x3/uL (130-400); RBC Distribution Width 20.2 % (11.5-14.5)
[2024-10-29 04:32] LABS: INR-International Normal Ratio 1.6; PTT 50.9 sec (22.9-36.1); Prothrombin Time 19.3 sec (12.0-14.7)
[2024-10-29 04:35] LABS: Vancomycin, Random 20.8 ug/mL (See Comment)
[2024-10-29 04:38] LABS: Anion Gap 12 mmol/L (10-20); BUN (Urea Nitrogen) 25 mg/dL (8.4-25.7); Calc. Creatinine Clearance 71 mL/min (70-130); Carbon Dioxide 16 mmol/L (23-31); Chloride 113 mmol/L (98-107); Potassium 3.3 mmol/L (3.5-5.1); Sodium 138 mmol/L (136-145)
[2024-10-29 04:39] LABS: ALT (SGPT) 22 U/L (8-55); AST (SGOT) 27 U/L (5-34); Albumin 2.9 g/dL (3.4-4.8); Alkaline Phosphatase 93 U/L (40-110); Bilirubin, Total 1.1 mg/dL (0.2-1.2); Calcium 7.2 mg/dL (7.8-10.44); Estimated GFR 91; Globulin 1.4 g/dL (2.4-3.5); Glucose 180 mg/dL (83-110); Magnesium 2.4 mg/dL (1.6-2.6); Protein, Total 4.3 g/dL (5.8-8.1)
[2024-10-29 04:52] LABS: Band 33 % (5-11); Hypochromia SLIGHT = 6-15 cells HPF (0-5); Large Platelets 1.9 % (0-5); Lymphocytes 1 % (21-51); Monocytes 4 % (0-10); Neutrophil 62 % (42-75); Nucleated RBC (Manual Ct) 1 % (0); Platelet Adequacy Comment Platelets Decreased; Poikilocytosis MODERATE=16-30 cells HPF (0-5); Polychromasia MODERATE = 3-4 cells HPF (0-2)
[2024-10-29] MEDS: Potassium Chloride 20 MEQ in Premix 1 BAG IVPB SCH (05:35)
[2024-10-29 12:09] LABS: Potassium 3.6 mmol/L (3.5-5.1)
[2024-10-29] MEDS: fentaNYL 25 mcg Patch TD SCH (16:01)
[2024-10-29] MEDS ORDERED: Simethicone Chewable 80 MG TAB PO PRN (18:18)
[2024-10-29] MEDS: Hydrocortisone Sod Succ/PF 100 mg/2 ml Vial IVP SCH (21:00)
[2024-10-30 05:06] LABS: Platelet Count 40 10x3/uL (130-400)
[2024-10-30 05:08] LABS: #Basophils Less than 0.03 10x3/uL (0.0-0.2); #Eosinophils Less than 0.03 10x3/uL (0.0-0.7); %Basophils 0.2 % (0.0-1.0); %Eosinophils 0.2 % (0.0-10.0); %Lymphocytes 4.4 % (21.0-51.0); %Monocytes 7.1 % (0.0-10.0); %Neutrophils 84.9 % (42.0-75.0); Hematocrit 31.9 % (42.0-52.0); Hemoglobin 11.1 g/dL (14.0-18.0); Mean Corpuscular HGB CONC 34.8 g/dL (32.0-36.0); Mean Corpuscular Hemoglobin 32.1 pg (27.0-31.0); Mean Corpuscular Volume 92.2 fL (78.0-98.0); Mean Platelet Volume 13.3 fL (7.4-10.4); Platelet Count 35 10x3/uL (130-400); RBC Distribution Width 20.1 % (11.5-14.5); Red Blood Cell (RBC) Count 3.46 mill/uL (4.70-6.10)
[2024-10-30 05:11] LABS: Fibrinogen 254 mg/dL (253-463)
[2024-10-30 05:12] LABS: INR-International Normal Ratio 1.4; PTT 39.9 sec (22.9-36.1)
[2024-10-30 05:13] LABS: D-Dimer Test 3.88 mcg/mL (0.27-0.43)
[2024-10-30 05:15] LABS: ALT (SGPT) 24 U/L (8-55); AST (SGOT) 27 U/L (5-34); Albumin 2.6 g/dL (3.4-4.8); Alkaline Phosphatase 88 U/L (40-110); Anion Gap 12 mmol/L (10-20); BUN (Urea Nitrogen) 21 mg/dL (8.4-25.7); Calc. Creatinine Clearance 80 mL/min (70-130); Calcium 7.1 mg/dL (7.8-10.44); Carbon Dioxide 19 mmol/L (23-31); Chloride 113 mmol/L (98-107); Estimated GFR 95; Globulin 1.4 g/dL (2.4-3.5); Glucose 183 mg/dL (83-110); Potassium 3.7 mmol/L (3.5-5.1); Sodium 140 mmol/L (136-145)
[2024-10-30] MEDS: ALPRAZolam 0.25 MG TAB PO PRN (17:01)
[2024-10-31] MEDS: Senokot 8.6 MG TAB PO PRN (00:25)
[2024-10-31 04:45] LABS: Hematocrit 29.5 % (42.0-52.0); Hemoglobin 10.2 g/dL (14.0-18.0); Mean Corpuscular HGB CONC 34.6 g/dL (32.0-36.0); Mean Corpuscular Hemoglobin 32.6 pg (27.0-31.0); Mean Corpuscular Volume 94.2 fL (78.0-98.0); Platelet Count 36 10x3/uL (130-400); Red Blood Cell (RBC) Count 3.13 mill/uL (4.70-6.10)
[2024-10-31 04:54] LABS: ALT (SGPT) 31 U/L (8-55); AST (SGOT) 25 U/L (5-34); Albumin 2.4 g/dL (3.4-4.8); Alkaline Phosphatase 78 U/L (40-110); Anion Gap 9 mmol/L (10-20); BUN (Urea Nitrogen) 19 mg/dL (8.4-25.7); Bilirubin, Total 0.8 mg/dL (0.2-1.2); Calc. Creatinine Clearance 91 mL/min (70-130); Calcium 7.2 mg/dL (7.8-10.44); Carbon Dioxide 20 mmol/L (23-31); Chloride 115 mmol/L (98-107); Estimated GFR 99; Globulin 1.5 g/dL (2.4-3.5); Glucose 202 mg/dL (83-110); Potassium 3.4 mmol/L (3.5-5.1); Protein, Total 3.9 g/dL (5.8-8.1); Sodium 141 mmol/L (136-145)
[2024-10-31 05:50] LABS: Band 10 % (5-11); Dohle Bodies SLIGHT; Lymphocytes 3 % (21-51); Macrocytosis SLIGHT = 6-15 cells HPF (0-5); Metamyelocyte 2 % (0-0); Monocytes 10 % (0-10); Neutrophil 73 % (42-75); Ovalocytes SLIGHT = 2-5 cells HPF (0-1); Platelet Adequacy Comment Significant Decrease; Polychromasia SLIGHT = 2-3 cells HPF (0-2); Tear Drops SLIGHT = 2-5 cells HPF (0-1); Toxic Granulation SLIGHT
[2024-10-31] MEDS: Potassium Bicarbonate/Cit Ac 20 MEQ TAB PO SCH (09:34)
[2024-10-31] MEDS: Potassium Chloride 20 MEQ TAB PO SCH (17:25)
[2024-10-31 17:27] LABS: INR-International Normal Ratio 1.4; Prothrombin Time 16.8 sec (12.0-14.7)
[2024-10-31 17:28] LABS: PTT 35.9 sec (22.9-36.1)
[2024-10-31] MEDS: Hydrocortisone 10 mg Tablet PO SCH (20:41)
[2024-11-01 14:08] VITALS: BMI 21.6
[2024-11-02 06:56] LABS: #Basophils 0.03 10x3/uL (0.0-0.2); #Eosinophils Less than 0.03 10x3/uL (0.0-0.7); %Basophils 0.2 % (0.0-1.0); %Eosinophils 0.1 % (0.0-10.0); %Lymphocytes 4.5 % (21.0-51.0); %Neutrophils 88.5 % (42.0-75.0); Hematocrit 31.2 % (42.0-52.0); Hemoglobin 10.4 g/dL (14.0-18.0); Mean Corpuscular HGB CONC 33.3 g/dL (32.0-36.0); Platelet Count 54 10x3/uL (130-400); RBC Distribution Width 19.6 % (11.5-14.5); Red Blood Cell (RBC) Count 3.25 mill/uL (4.70-6.10)
[2024-11-02 07:20] LABS: ALT (SGPT) 31 U/L (8-55); AST (SGOT) 18 U/L (5-34); Albumin 2.4 g/dL (3.4-4.8); Alkaline Phosphatase 108 U/L (40-110); Anion Gap 13 mmol/L (10-20); BUN (Urea Nitrogen) 17 mg/dL (8.4-25.7); Bilirubin, Total 0.8 mg/dL (0.2-1.2); Calc. Creatinine Clearance 100 mL/min (70-130); Calcium 7.4 mg/dL (7.8-10.44); Carbon Dioxide 19 mmol/L (23-31); Chloride 115 mmol/L (98-107); Estimated GFR 102; Globulin 1.4 g/dL (2.4-3.5); Glucose 130 mg/dL (83-110); Potassium 3.6 mmol/L (3.5-5.1); Protein, Total 3.8 g/dL (5.8-8.1); Sodium 143 mmol/L (136-145)
[2024-11-02 14:20] VITALS: BP 113/73; TEMP 98.1
== END 2024-11-02 14:10 | disposition home or self-care (01) | DRG 698 ==
LOC: ERS 01:32 → SUATTDRO 01:32 → CCU 05:22 → MSONC 10-29 18:05
PROVIDERS: ADMIT Internal Medicine; ATTEND Hospitalist
PROC: 30233N1 Transfusion of Nonautologous Red Blood Cells into Peripheral Vein, Percutaneous Approach (ICD-10-PCS; principal; 2024-10-27)
DX: T83.511A Infection and inflammatory reaction due to indwelling urethral catheter, initial encounter (principal); A41.59 Other Gram-negative sepsis; G93.41 Metabolic encephalopathy; R65.21 Severe sepsis with septic shock; C90.00 Multiple myeloma not having achieved remission; I50.22 Chronic systolic (congestive) heart failure; E87.20 Acidosis, unspecified; D61.818 Other pancytopenia; E44.0 Moderate protein-calorie malnutrition; D68.9 Coagulation defect, unspecified; N39.0 Urinary tract infection, site not specified; I11.0 Hypertensive heart disease with heart failure; E11.9 Type 2 diabetes mellitus without complications; N40.0 Benign prostatic hyperplasia without lower urinary tract symptoms; E78.5 Hyperlipidemia, unspecified; D69.6 Thrombocytopenia, unspecified; K59.00 Constipation, unspecified; Z91.041 Radiographic dye allergy status; Z86.73 Personal history of transient ischemic attack (TIA), and cerebral infarction without residual deficits; Z92.21 Personal history of antineoplastic chemotherapy; Y73.2 Prosthetic and other implants, materials and accessory gastroenterology and urology devices associated with adverse incidents; Y84.6 Urinary catheterization as the cause of abnormal reaction of the patient, or of later complication, without mention of misadventure at the time of the procedure; E87.6 Hypokalemia; E83.42 Hypomagnesemia
CPT/HCPCS: 36415; 36416; 36430; 36556; 51702; 71275; 74177; 76705; 80053; 80202; 81001; 82805; 83605; 83735; 83880; 84100; 84484; 85025; 85046; 85049; 85300; 85362; 85384; 85610; 85730; 86850; 86900; 86901; 87040; 87077; 87086; 87149; 87186; 93005; 96361; 96365; 96366; 96368; 96375; 99292; A4217; J0171; J0692; J1200; J1447; J1720; J1815; J2405; J2470; J2543; J2919; J3370; J3475; J3480; J3490; J7050; J7120; P9016; P9047; Q9967

== ENCOUNTER 2024-12-08 14:24 | Outpatient (CLI) | payer MEDICARE | END 2024-12-08 14:25 | disposition home or self-care (01) | LOC: ULT 14:24 | PROVIDERS: ATTEND Internal Medicine | DX: C90.00 Multiple myeloma not having achieved remission (principal); I82.4Y1 Acute embolism and thrombosis of unspecified deep veins of right proximal lower extremity; D51.3 Other dietary vitamin B12 deficiency anemia; Z79.899 Other long term (current) drug therapy ==

== ENCOUNTER 2024-12-20 23:02 | Inpatient (IN) | payer MEDICARE ==
[2024-12-21 00:42] LABS: Hematocrit 25.6 % (42.0-52.0); Hemoglobin 8.6 g/dL (14.0-18.0); Mean Corpuscular HGB CONC 33.6 g/dL (32.0-36.0); Mean Corpuscular Hemoglobin 34.7 pg (27.0-31.0); Mean Corpuscular Volume 103.2 fL (78.0-98.0); Platelet Count 101 10x3/uL (130-400); RBC Distribution Width 15.6 % (11.5-14.5); Red Blood Cell (RBC) Count 2.48 mill/uL (4.70-6.10)
[2024-12-21 00:46] LABS: Bacteria/HPF None Seen HPF (None Seen); Bilirubin Negative (Negative); Blood, Urine 3+ (Negative); CAUTI Indications for Culture Pelvic or flank pain; Clarity Clear (Clear); Glucose, Urine (Dipstick) Normal (Negative); Ketone, Urine Trace mg/dL (Negative); Leukocyte Negative Leu/uL (Negative); Nitrite Negative (Negative); Protein, Urine (Dipstick) Negative (Neg-Trace); Specific Gravity, Urine 1.005 (1.002-1.036); Squamous Epithelial 0-3 HPF (0-3); Urobilinogen Normal mg/dL (Less than 2); WBC/HPF 0-3 HPF (0-3); pH, Urine 6.5 (5.0-9.0)
[2024-12-21 00:51] LABS: Urine Culture Reflex No No
[2024-12-21 00:53] LABS: ALT (SGPT) 8 U/L (Less than 45); AST (SGOT) 9 U/L (11-34); Albumin 2.5 g/dL (3.1-4.5); Alkaline Phosphatase 65 U/L (40-110); Anion Gap 11 mmol/L (10-20); BUN (Urea Nitrogen) 13 mg/dL (8.4-25.7); Bilirubin, Total 1.1 mg/dL (0.3-1.2); Calc. Creatinine Clearance 0 mL/min (70-130); Calcium 7.2 mg/dL (7.8-10.44); Carbon Dioxide 18 mmol/L (23-31); Chloride 109 mmol/L (98-107); Estimated GFR 99; Globulin 1.8 g/dL (2.4-3.5); Glucose 128 mg/dL (83-110); Potassium 3.1 mmol/L (3.5-5.1); Protein, Total 4.3 g/dL (5.8-8.1); Sodium 135 mmol/L (136-145)
[2024-12-21 01:04] LABS: Band 3 % (5-11); Eosinophils 4 % (0-10); Large Platelets 13.7 % (0-5); Lymphocytes 48 % (21-51); Macrocytosis SLIGHT = 6-15 cells HPF (0-5); Monocytes 21 % (0-10); Neutrophil 25 % (42-75); Nucleated RBC (Manual Ct) 1 % (0); Platelet Adequacy Comment Platelets Decreased; Polychromasia SLIGHT = 2-3 cells HPF (0-2); Smudge Cells 9.6 %
[2024-12-21 01:13] LABS: Actual Bicarbonate (HCO3v) 19.7 mEq/L (22-28); Base Excess -3.6 mEq/L (-2.0 to +3.0); Calcium, Ionized (venous) 1.02 mmol/L (1.16-1.32); Chloride (VBG) 104 mmol/L (98-106); Hematocrit-VBG 28 % (42.0-52.0); Hemoglobin (Hb) 9.4 g/dL (12.6-17.4); Potassium (VBG) 3.09 mmol/L (3.70-5.30); Sodium 133 mmol/L (133-146); pH (venous) 7.446 (7.32-7.43)
[2024-12-21] MEDS ORDERED: Sodium Chloride 0.9% 100 ML ONE (02:04)
[2024-12-21] MEDS ORDERED: Cefepime 2 GM VIAL ONE (02:04)
[2024-12-21] MEDS ORDERED: Ondansetron PF 4 MG/2 ML Vial IVP PRN (02:44)
[2024-12-21] MEDS ORDERED: Dextrose 50% Abboject 50 ML SYRINGE SLOW IVP PRN (03:12)
[2024-12-21] MEDS ORDERED: Dextrose 5% in Water 1,000 ML IV PRN (03:12)
[2024-12-21] MEDS ORDERED: Glucagon 1 MG/ML KIT IM PRN (03:12)
[2024-12-21] MEDS ORDERED: Insulin Lispro 100 UNIT/ML 10 ML VIAL SC PRN (03:12)
[2024-12-21 03:20] VITALS: BMI 21.8
[2024-12-21] MEDS: Vancomycin (BATCH) 1.5 GM in Premix 1 BAG IVPB ONE (03:31)
[2024-12-21] MEDS: Potassium Bicarbonate/Cit Ac 20 MEQ TAB PO SCH (03:35)
[2024-12-21] MEDS: Furosemide 20 MG (2 mL) VIAL SLOW IVP SCH (05:46)
[2024-12-21] MEDS: Acetaminophen 325 MG TAB PO PRN (05:53)
[2024-12-21 06:01] LABS: Hematocrit 27.4 % (42.0-52.0); Hemoglobin 9.2 g/dL (14.0-18.0); Mean Corpuscular HGB CONC 33.6 g/dL (32.0-36.0); Mean Corpuscular Hemoglobin 34.1 pg (27.0-31.0); Mean Corpuscular Volume 101.5 fL (78.0-98.0); Mean Platelet Volume 11.9 fL (7.4-10.4); Platelet Count 100 10x3/uL (130-400); RBC Distribution Width 15.3 % (11.5-14.5)
[2024-12-21 06:32] LABS: Anion Gap 11 mmol/L (10-20); BUN (Urea Nitrogen) 11 mg/dL (8.4-25.7); Calc. Creatinine Clearance 84 mL/min (70-130); Calcium 7.2 mg/dL (7.8-10.44); Carbon Dioxide 19 mmol/L (23-31); Chloride 110 mmol/L (98-107); Estimated GFR 100; Glucose 136 mg/dL (83-110); Magnesium 1.4 mg/dL (1.6-2.6); Potassium 3.3 mmol/L (3.5-5.1); Sodium 137 mmol/L (136-145)
[2024-12-21 06:42] LABS: Band 2 % (5-11); Eosinophils 4 % (0-10); Lymphocytes 73 % (21-51); Monocytes 12 % (0-10); Myelocyte 2 % (0-0); Neutrophil 3 % (42-75); Platelet Adequacy Comment Platelets Decreased; RBC Morphology Within Normal Limits; Smudge Cells 24.7 %
[2024-12-21] MEDS ORDERED: FLU (Fluad Triv) TS24-25 (65UP)/MF59C/PF 45 MCG/0.5 ML Syringe IM ONE (09:00)
[2024-12-21] MEDS ORDERED: Acidophilus Lactiobac CAPSULE PO SCH (09:00)
[2024-12-21] MEDS ORDERED: Enoxaparin 40 MG (0.4 mL) SYRINGE SC SCH (09:00)
[2024-12-21] MEDS: Atorvastatin Calcium 40 MG TAB PO SCH (09:25)
[2024-12-21] MEDS: Aspirin 81 mg Enteric Coated Tablet PO SCH (09:25)
[2024-12-21] MEDS: Carvedilol 3.125 MG TAB PO SCH (09:25)
[2024-12-21] MEDS: valACYclovir 500 MG TAB PO SCH (09:25)
[2024-12-21] MEDS: Cyanocobalamin (Vitamin B-12) 1,000 MCG TAB PO SCH (09:25)
[2024-12-21] MEDS: Pantoprazole 40 MG DR.TAB PO SCH (09:25)
[2024-12-21] MEDS: Senokot 8.6 MG TAB PO SCH (09:25)
[2024-12-21] MEDS: Enoxaparin 30 MG (0.3 mL) SYRINGE SC SCH (09:26)
[2024-12-21] MEDS: Nystatin 500,000 UNITS/5 ML UDCUP SSW SCH (09:26)
[2024-12-21] MEDS ORDERED: Electrolyte Replacement Protocol FS PRN (09:30)
[2024-12-21] MEDS ORDERED: Potassium Bicarbonate/Cit Ac 20 MEQ TAB PO SCH (09:30)
[2024-12-21] MEDS ORDERED: Electrolyte Replacement Protocol 1 EACH FS SCH (09:30)
[2024-12-21] MEDS: Magnesium Sulfate In Water 4 GM in Premix 1 BAG IVPB SCH (09:44)
[2024-12-21] MEDS: Cefepime 2 GM in Sodium Chloride 0.9% 100 ML IVPB SCH (12:19)
[2024-12-21] MEDS: Floranex 1 GM Packet PO SCH (12:20)
[2024-12-21] MEDS: Vancomycin 1 GM in Premix 1 BAG IVPB SCH (13:22)
[2024-12-21] MEDS: Fluconazole 100 MG TAB PO SCH (13:22)
[2024-12-21] MEDS: Potassium Chloride 20 MEQ in Premix 1 BAG IVPB SCH (13:23)
[2024-12-21] MEDS ORDERED: Furosemide 20 MG (2 mL) VIAL SLOW IVP SCH (14:00)
[2024-12-21] MEDS: Insulin Lispro 100 UNIT/ML 10 ML VIAL SC PRN (16:29)
[2024-12-21] MEDS: MAGIC MOUTHWASH 10 ML, Compounding Fee 1 SSW PRN (18:49)
[2024-12-21] MEDS: Mirtazapine 15 MG TAB PO SCH (20:36)
[2024-12-21] MEDS: Lorazepam 0.5 MG TAB PO PRN (20:36)
[2024-12-21 21:45] LABS: Potassium 3.2 mmol/L (3.5-5.1)
[2024-12-22 04:44] LABS: Hematocrit 26.4 % (42.0-52.0); Hemoglobin 8.7 g/dL (14.0-18.0); Mean Corpuscular Hemoglobin 33.7 pg (27.0-31.0); Mean Corpuscular Volume 102.3 fL (78.0-98.0); Mean Platelet Volume 11.9 fL (7.4-10.4); Platelet Count 95 10x3/uL (130-400); RBC Distribution Width 14.9 % (11.5-14.5); Red Blood Cell (RBC) Count 2.58 mill/uL (4.70-6.10)
[2024-12-22 05:01] LABS: Vancomycin, Random 35.5 ug/mL (See Comment)
[2024-12-22 05:18] LABS: Anion Gap 8 mmol/L (10-20); BUN (Urea Nitrogen) 14 mg/dL (8.4-25.7); Calc. Creatinine Clearance 76 mL/min (70-130); Carbon Dioxide 24 mmol/L (23-31); Chloride 107 mmol/L (98-107); Estimated GFR 97; Glucose 106 mg/dL (83-110); Magnesium 2.3 mg/dL (1.6-2.6); Potassium 3.6 mmol/L (3.5-5.1); Sodium 135 mmol/L (136-145)
[2024-12-22 05:28] LABS: Anisocytosis SLIGHT = 6-15 cells HPF (0-5); Eosinophils 21 % (0-10); Hypochromia SLIGHT = 6-15 cells HPF (0-5); Large Platelets 70.8 % (0-5); Lymphocytes 52 % (21-51); Macrocytosis SLIGHT = 6-15 cells HPF (0-5); Monocytes 13 % (0-10); Neutrophil 10 % (42-75); Nucleated RBC (Manual Ct) 2 % (0); Platelet Adequacy Comment Platelets Decreased; Poikilocytosis SLIGHT = 6-15 cells HPF (0-5); Polychromasia SLIGHT = 2-3 cells HPF (0-2)
[2024-12-22] MEDS: Potassium Chloride 20 MEQ TAB PO SCH (09:18)
[2024-12-22] MEDS: Guaifenesin DM 100-10/5 ML UDCUP PO PRN (13:59)
[2024-12-22] MEDS: Ipratropium/Albuterol 3 ML NEB NEB PRN (14:57)
[2024-12-22] MEDS: Mirtazapine 15 MG TAB PO SCH (20:19)
[2024-12-22] MEDS: TBO-Filgrastim 300 MCG/0.5 ML VIAL SC SCH (21:42)
[2024-12-22] MEDS: Furosemide 40 MG (4 mL) VIAL SLOW IVP SCH (23:58)
[2024-12-23] MEDS ORDERED: Vancomycin 1.5 GRAM/300 ML BAG 1.5 GM in Premix 1 BAG IVPB SCH (02:00)
[2024-12-23 05:06] LABS: Hematocrit 28.9 % (42.0-52.0); Hemoglobin 9.4 g/dL (14.0-18.0); Mean Corpuscular HGB CONC 32.5 g/dL (32.0-36.0); Mean Corpuscular Hemoglobin 34.6 pg (27.0-31.0); Mean Corpuscular Volume 106.3 fL (78.0-98.0); Platelet Count 124 10x3/uL (130-400); RBC Distribution Width 15.1 % (11.5-14.5); Red Blood Cell (RBC) Count 2.72 mill/uL (4.70-6.10)
[2024-12-23 05:26] LABS: Anion Gap 15 mmol/L (10-20); BUN (Urea Nitrogen) 14 mg/dL (8.4-25.7); Calc. Creatinine Clearance 67 mL/min (70-130); Calcium 7.5 mg/dL (7.8-10.44); Carbon Dioxide 18 mmol/L (23-31); Chloride 106 mmol/L (98-107); Estimated GFR 93; Glucose 140 mg/dL (83-110); Potassium 3.1 mmol/L (3.5-5.1); Sodium 136 mmol/L (136-145)
[2024-12-23 05:36] LABS: Anisocytosis SLIGHT = 6-15 cells HPF (0-5); Band 10 % (5-11); Hypochromia SLIGHT = 6-15 cells HPF (0-5); Lymphocytes 40 % (21-51); Macrocytosis SLIGHT = 6-15 cells HPF (0-5); Monocytes 40 % (0-10); Neutrophil 10 % (42-75); Platelet Adequacy Comment Platelets Decreased; Poikilocytosis SLIGHT = 6-15 cells HPF (0-5); Polychromasia SLIGHT = 2-3 cells HPF (0-2)
[2024-12-23] MEDS ORDERED: Potassium Chloride 20 MEQ TAB PO SCH (08:00)
[2024-12-23] MEDS: Potassium Chloride 20 MEQ in Premix 1 BAG IVPB SCH (09:05)
[2024-12-23] MEDS: Magnesium 2 GM/50 ML(in water) 2 GM in Premix 1 BAG IVPB SCH (09:06)
[2024-12-23 09:40] LABS: Actual Bicarbonate (HCO3v) 24.1 mEq/L (22-28); Base Excess 1.6 mEq/L (-2.0 to +3.0); Calcium, Ionized (venous) 0.94 mmol/L (1.16-1.32); Chloride (VBG) 101 mmol/L (98-106); Hematocrit-VBG 31 % (42.0-52.0); Hemoglobin (Hb) 10.7 g/dL (12.6-17.4); Potassium (VBG) 3.17 mmol/L (3.70-5.30); Sodium 136 mmol/L (133-146); pH (venous) 7.511 (7.32-7.43)
[2024-12-23 11:16] LABS: Troponin I 0.025 ng/mL (< 0.028)
[2024-12-23] MEDS: Cefepime 2 GM in Sodium Chloride 0.9% 100 ML IVPB SCH ×2 (13:44→23:54)
[2024-12-23] MEDS: ALPRAZolam 0.25 MG TAB PO PRN (22:02)
[2024-12-24 05:27] LABS: Vancomycin, Random 4.2 ug/mL (See Comment)
[2024-12-24] MEDS: Enoxaparin 40 MG (0.4 mL) SYRINGE SC SCH (09:25)
[2024-12-24 10:26] LABS: Hematocrit 27.7 % (42.0-52.0); Hemoglobin 8.9 g/dL (14.0-18.0); Mean Corpuscular HGB CONC 32.1 g/dL (32.0-36.0); Mean Corpuscular Hemoglobin 33.2 pg (27.0-31.0); Mean Corpuscular Volume 103.4 fL (78.0-98.0); Mean Platelet Volume 11.3 fL (7.4-10.4); Platelet Count 151 10x3/uL (130-400); RBC Distribution Width 14.9 % (11.5-14.5); Red Blood Cell (RBC) Count 2.68 mill/uL (4.70-6.10)
[2024-12-24 10:53] LABS: Anisocytosis SLIGHT = 6-15 cells HPF (0-5); Band 9 % (5-11); Hypochromia SLIGHT = 6-15 cells HPF (0-5); Large Platelets 18.7 % (0-5); Lymphocytes 34 % (21-51); Macrocytosis SLIGHT = 6-15 cells HPF (0-5); Metamyelocyte 2 % (0-0); Monocytes 25 % (0-10); Neutrophil 29 % (42-75); Ovalocytes SLIGHT = 2-5 cells HPF (0-1); Platelet Adequacy Comment Platelets Normal; Poikilocytosis SLIGHT = 6-15 cells HPF (0-5); Polychromasia SLIGHT = 2-3 cells HPF (0-2); Schistocytes SLIGHT = 2-5 cells HPF (0-1)
[2024-12-24 15:32] VITALS: TEMP 97.7
[2024-12-24 17:31] VITALS: BP 122/77
== END 2024-12-24 17:55 | disposition home or self-care (01) | DRG 193 ==
LOC: ERS 23:02 → MSONC 12-21 01:47
PROVIDERS: ADMIT Internal Medicine; ATTEND Internal Medicine
DX: J18.9 Pneumonia, unspecified organism (principal); I50.23 Acute on chronic systolic (congestive) heart failure; J96.01 Acute respiratory failure with hypoxia; C90.00 Multiple myeloma not having achieved remission; I42.9 Cardiomyopathy, unspecified; B37.0 Candidal stomatitis; I82.4Y1 Acute embolism and thrombosis of unspecified deep veins of right proximal lower extremity; D70.9 Neutropenia, unspecified; E78.5 Hyperlipidemia, unspecified; N40.0 Benign prostatic hyperplasia without lower urinary tract symptoms; E11.9 Type 2 diabetes mellitus without complications; E87.6 Hypokalemia; I11.0 Hypertensive heart disease with heart failure; Z86.73 Personal history of transient ischemic attack (TIA), and cerebral infarction without residual deficits; Z91.041 Radiographic dye allergy status; Z88.4 Allergy status to anesthetic agent; Z88.8 Allergy status to other drugs, medicaments and biological substances; Z79.82 Long term (current) use of aspirin; Z79.02 Long term (current) use of antithrombotics/antiplatelets; Z79.4 Long term (current) use of insulin; Z79.899 Other long term (current) drug therapy; D51.3 Other dietary vitamin B12 deficiency anemia; M79.604 Pain in right leg; R60.0 Localized edema
CPT/HCPCS: 36415; 36416; 71045; 80048; 80053; 80202; 81001; 81003; 82805; 83605; 83735; 83880; 84145; 84484; 85025; 85379; 87040; 87070; 87086; 87205; 87428; 87633; 94640; 94760; 96374; J0692; J1447; J1815; J1940; J3370; J3475; J3480; J7620